=== PATIENT | female | born 1995 | race Two or more races ===

== ENCOUNTER 2024-02-16 13:01 | Emergency (ER) | payer MEDICAID, SELFPAY ==
[2024-02-16 13:20] VITALS: BP 111/76; PULSE 68; RESP 19; TEMP 37.1; O2SAT 98; BMI 23.8
--- NOTE | 2024-02-16 15:12 | XR_ITS ---
Examination: Pelvic ultrasound, transabdominal, complete Technique: Transabdominal ultrasound of the pelvis performed using grayscale imaging Date and time of exam: February 16, 2024 1551 hrs. Indications: Right lower abdominal pain pelvic pain beginning 3 months ago, worse today Findings: Uterus 8.0 x 5.4 x 7.4 cm Endometrial stripe 0.4 cm No uterine mass or intrauterine gestation Right ovary 3.4 x 2.5 x 2.9 cm arterial flow 20 x 17 mm cyst Left ovary 3.9 x 2.9 cm arterial flow 14 mm follicular cyst Impression: No uterine mass or intrauterine gestation Small bilateral ovarian follicular cysts
--- NOTE | 2024-02-16 15:13 | EDNOTE_ITS ---
ED Abdominal Pain RME/HPI General Chief Complaint: Abdominal Pain Stated complaint: LOWER ABD PAIN Arrival date/time: 02/16/24 13:01 RME / HPI RME / HPI narrative: Clinical Summary: This 28-year-old female presents with a history of bilateral flank pain over the past several weeks, which she attributes to a ruptured ovarian cyst that occurred a few weeks ago. The pain is described as nonspecific, located mainly in the left upper quadrant, and is not related to her menstrual cycle. She has had an ultrasound recently that showed no significant findings, and she reports no current pain or significant symptoms in the emergency department. The only finding on physical examination is minimal tenderness in the right lower quadrant, with no signs of peritonitis. Her past surgical history includes breast augmentation. Differential Diagnosis: Based on the patient's history and clinical presentation, here are several possible diagnoses: * Ovarian Cyst Rupture: * A ruptured ovarian cyst could explain her symptoms. While these typically present with acute, severe pelvic pain, a more gradual or lingering pain may persist even after the rupture. This could account for the prolonged nonspecific pain in the left upper quadrant (although ovarian cysts are typically located in the lower abdomen). * The minimal tenderness on physical exam and the normal ultrasound may suggest that the cyst has resolved, or there is no active process currently affecting the ovaries. * Urinary Tract Infection (UTI) or Renal Pathology: * Flank pain can sometimes be due to a UTI or renal pathology like kidney stones or pyelonephritis. However, this patient has no urinary symptoms (e.g., dysuria, hematuria, fever) or signs of infection, making this diagnosis less likely. * Musculoskeletal Pain: * The right lower quadrant tenderness could be due to musculoskeletal pain, possibly from a muscle strain or other musculoskeletal injury. This could also explain the nonspecific, intermittent nature of her pain. * Gastrointestinal Issues: * Gastrointestinal causes, such as irritable bowel syndrome (IBS), constipation, or gastroesophageal reflux disease (GERD), could also manifest as nonspecific abdominal or flank pain. The location of her pain in the left upper quadrant is not typical for gastrointestinal causes, but it still remains in the differential. * Endometriosis: * Endometriosis can cause chronic pelvic or flank pain, especially if it involves the ovaries or peritoneum. However, her pain is not correlated with her menstrual cycle, which is atypical for this diagnosis, and she has no associated symptoms (e.g., dyspareunia, dysmenorrhea). Work-Up and Next Steps: * Repeat Imaging: * Pelvic ultrasound: While the patient had an ultrasound recently, repeating a pelvic ultrasound might be helpful, especially if the pain persists or there is suspicion of other ovarian pathology, such as residual or new cysts or endometriosis. Related Data Allergies Allergy/AdvReac Type Severity Reaction Status Date / Time No Known Allergies Allergy Verified 02/16/24 13:02 Course Quality Measures none Orders Category Date Time Status US pelvic complete Stat Exams 02/16/24 15:12 Completed CBC Stat Lab 02/16/24 16:35 Completed CMP [Comprehensive Metabolic Panel] Stat Lab 02/16/24 16:35 Received HCG Qualitative,Urine Stat Lab 02/16/24 15:44 Completed UA [Urinalysis] Stat Lab 02/16/24 15:44 Completed Vital Signs Vital signs: Vital Signs Temperature 98.8 F 02/16/24 13:20 Pulse Rate 68 02/16/24 13:20 Respiratory Rate 19 02/16/24 13:20 Blood Pressure 111/76 02/16/24 13:20 Pulse Oximetry (%) 98 02/16/24 13:20 Oxygen Delivery Method Room Air 02/16/24 13:20 Abdominal Pain MDM MDM Narrative [facility] Narrative:: Patient has minimal symptoms and no clear reason for an abdominal pain in the healthy, young lady. Her examination and evaluation of her abdomen was completely benign in the emergency department. Her main concern was her ovarian cyst which was rechecked using an ultrasound and was completely unremarkable. Patient data External records reviewed:: None Clinical information provided by:: patient Social determinants that could affect healthcare access:: none Patient has the following chronic illnesses:: none How is presenting disease/condition affected by chronic disease/condition?: no chronic disease Evaluation data The following diagnostics were reviewed and interpreted by me:: lab results and radiology exam(s) Lab and/or radiology exams considered but not ordered:: See MDM Interpretation Summary: See MDM Medications / Prescriptions Medications or Prescriptions considered but not ordered:: Not applicable Medication administrations:: Not applicable Consultations Consultation(s) initiated? (list below): No Diagnosis Differential diagnosis abdominal pain: abdominal pain, constipation and endometriosis Most likely diagnosis given after review of the tests above:: UTI Admission Indicated Admission indicated?: not indicated Admission Request Was there a request for admission?: No Disposition Plan Disposition Plan: Discharge Discharge Attestation Discharge Attestation: The patient and all family members were given an opportunity to ask questions and understood the discharge instructions. Discharge instructions specifically effects, indications for sooner follow up or return to the emergency department, and the expected course of current diagnosis. Patient condition: Stable Discharge Plan Plan Patient Disposition: HOME (Self Care) Patient condition on transfer: Stable Prescriptions/Referrals Referrals: Hung Gary MD [Primary Care Provider] - In 1 week Problem List Clinical Impression: History of ovarian cyst Patient/Caregiver Discharge Instructions Print Language: Citizen Of [place] Stand Alone Forms: Najma Award Info., Patient Portal Info Letter
[2024-02-16 16:18] LABS: Collection Type, Urine Clean Catch
[2024-02-16 16:32] LABS: HCG Qualitative,Urine Negative
[2024-02-16 16:37] LABS: Bacteria,Urine 4+; Bilirubin,Urine Negative (Negative); Blood,Urine 1+ (Negative); Clarity,Urine Turbid (Clear/Hazy); Color,Urine Yellow (Lt Yel-Yel); Glucose, Urine Negative (Negative); Ketones,Urine Negative (Negative); Leukocyte Esterase,Urine Negative (Negative); Nitrite,Urine Positive (Negative); Protein,Urine Trace (Neg - Trace); RBC,Urine 9 /hpf (0-3); Specific Gravity,Urine 1.024 (1.001-1.035); Squamous Epithelial Cell,Urine 6 /hpf (0-5); Urobilinogen,Urine Negative mg/dL (0.0-1.0); WBC,Urine 1 /hpf (0-5)
[2024-02-16 16:43] LABS: Basophils % (Auto) 1 % (0-2.5); Eosinophils # (Auto) 0.1 Thou/mm3 (0.0-0.5); Eosinophils % (Auto) 1 % (0-10); Hematocrit 38.2 % (36.0-46.0); Hemoglobin 12.7 g/dL (12.0-16.0); Immature Granulocytes % (Auto) 0 % (0-0); Immature Granulocytes Auto 0.02 Thou/mm3 (0.00-0.00); Lymphocytes # (Auto) 1.4 Thou/mm3 (1.0-4.8); Lymphocytes % (Auto) 27 % (10-50); Mean Corpuscular HGB Conc 33.2 g/dl (31.0-37.0); Mean Corpuscular Hemoglobin 27.9 pg (25.0-35.0); Mean Corpuscular Volume 84 fL (80-100); Monocytes # (Auto) 0.4 Thou/mm3 (0.0-0.8); Monocytes % (Auto) 8 % (0-12); Neutrophils # (Auto) 3.3 Thou/mm3 (1.8-7.7); Neutrophils % (Auto) 63 % (37-80); Nucleated Red Blood Cell % 0 /100 WBC (0); Platelet Count 305 Thou/mm3 (140-440); Red Blood Count 4.56 Miln/mm3 (4.00-5.20); White Blood Count 5.2 Thou/mm3 (3.6-11.0)
[2024-02-16 17:06] LABS: Alanine Aminotransferase 12 U/L (10-49); Albumin, Serum 4.5 gm/dL (3.5-5.0); Anion Gap 6 (7-16); Aspartate Amino Transferase 12 U/L (0-34); BUN/Creatinine Ratio 13 Ratio (12-20); Bilirubin,Total 0.6 mg/dL (0.3-1.2); Blood Urea Nitrogen 9 mg/dL (9-23); Calcium 9.2 mg/dL (8.3-10.6); Calcium (Corrected) 9.2 mg/dL (8.5-10.1); Carbon Dioxide 25.9 mMol/L (20.0-31.0); Chloride 106 mMol/L (98-107); Creatinine (Component) 0.7 mg/dL (0.6-1.3); Estimated Creatinine Clearance 90.3 mL/min (>60); Glucose 89 mg/dL (74-106); Osmolality,Calculated 273 (275-295); Potassium 3.8 mMol/L (3.4-5.1); Sodium 138 mMol/L (136-145); Total Protein 7.2 gm/dL (5.7-8.2); eGFR > 60 See Note
[2024-02-16 17:07] LABS: Albumin/Globulin Ratio 1.7 (1.2-2.2); Alkaline Phosphatase 63 U/L (46-116); Globulin 2.7 gm/dL (2.3-3.5)
[2024-02-16 17:10] VITALS: BP 125/84; PULSE 66; RESP 16; TEMP 37.1; O2SAT 98
== END 2024-02-16 17:15 | disposition home or self-care (01) ==
PROVIDERS: Emergency Provider Emergency Medicine; PCP Family Medicine
DX: N83.02 Follicular cyst of left ovary (principal); N83.01 Follicular cyst of right ovary
CPT/HCPCS: 36415; 76856; 80053; 81001; 81025; 85025; 99284

== ENCOUNTER 2024-06-02 10:22 | Outpatient (AMB) | payer MEDICAID, SELFPAY ==
--- NOTE | 2024-06-02 10:23 | AMB.OBINITIA ---
Vital Signs 06/02/24 10:40 Height 1.55 m Height Method Stated Weight 61.915 kg Weight Measurement Method Standing Scale BMI 25.7 BP 109/71 Blood Pressure Source Automatic Cuff Blood Pressure Location Left Upper Arm Position Sitting Respiration 16 Pulse 88 Pulse Source Monitor Temp 98 F Temp Source Oral Pulse Oximetry (%) 98 Oxygen Delivery Method Room Air Allergies/Home Meds Allergies & Medications Allergies No Known Allergies Allergy (Verified 06/02/24 10:42) Medication Reconciliation No Known Home Medications 06/02/24 [History Confirmed 06/02/24] Intake Visit Data Collection New Patient or Established: Established Patient (seen at [facility] within 3 years) Reason for Visit:: Initial OB Seen by Clinical Staff ONLY (RN/MA): No Hide Cooking Operator Required: No Do You Feel Safe at Home: Yes Authorities Contacted: N/A PCP or OBGYN visit in last 3 months: Yes Hx Now: Yes Are you currently on any form of Control: No Last menstrual period: 03/25/24 Pain Present Currently: No Pain Scale Used: Carpio-Montgomery/Numerical Pain scale:: 0 Smoking Status Smoking Status: Never smoker Questionnaires Covid-19 Vaccine Questionnaire Has patient been vacinated for Covid-19 Have you been vacinated for Covid-19: No PHQ-9 PHQ-2 Over the last 2 weeks, how often have you been bothered by any of the following problems? 1. Little interest or pleasure in doing things: not at all 2. Feeling down, depressed, or hopeless: not at all Total score: 0 PHQ-9 3. Trouble falling or staying asleep, or sleeping too much: Not at all 4. Feeling tired or having little energy: Not at all 5. Poor appetite or overeating: Not at all 6. Feeling bad about yourself - or that you are a failure or have let yourself or your family down: Not at all 7. Trouble concentrating on things, such as reading the newspaper or watching television: Not at all 8. Moving or speaking so slowly that other people could have noticed? - Or the opposite - being so fidgety or restless that you have been moving around a lot more than usual: not at all 9. Thoughts that you would be better off or of hurting yourself in some way: Not at all Total score: 0 Source: Developed by Drs. Magen Davalos, Magalis Vu, Kevin Gonzalez and colleagues, with an educational farhat from [employer]. Depression screen completed yes Social History Living Situation History Marital Status: Single Lives With: Family Housing: House Tobacco History Smoking Status: Never smoker Second Hand Smoke Exposure: No Alcohol History Alcohol Intake: Former Alcohol Intake Frequency: holidays/special occasions only Substance Use History Substance Use: none Domestic Abuse History Do You Feel Safe at Home: Yes Past Medical History Past Medical History Have you ever been diagnosed with any of the following: Neurological Problems Cerebrovascular Accident (CVA): No Transient Ischemic Attacks (TIA): No Dementia: No Alzheimer's Disease: No Parkinson's Disease: No Brain Tumor: No Meningitis: No Seizures: No Epilepsy: No Multiple Sclerosis: No Cerebral Palsy: No Amyotrophic Lateral Sclerosis (ALS/Janie Gehrig's): No Guillain-Lena Syndrome: No Spina Bifida: No Paralysis: No Peripheral Neuropathy: No Gray's Palsy: No Subdural Hematoma: No Migraine: No Head Trauma: No Spinal Cord Injury: No Traumatic Brain Injury: No Cardiology Problems Myocardial Infarction: No Cardiac Arrhythmia: No Atrial Fibrillation: No Angina: No Heart Murmur: No Coronary Artery Disease: No Atherosclerotic Heart Disease: No Peripheral Vascular Disease: No Hypercholesterolemia: No Aneurysm: No Congestive Heart Failure: No Congenital Heart Disease: No Valvular Heart Disease: No Rheumatic Fever: No Cardiomyopathy: No Edema: No Pericarditis: No Deep Vein Thrombosis: No Hypertension: No Hypotension: No Respiratory Problems Chronic Obstructive Pulmonary Disease (COPD): No Asthma: No Bronchitis: No Emphysema: No Pneumonia: No Stomache/Intestinal Problems Liver Cancer: No Hepatitis: No Cirrhosis: No Pancreatic Cancer: No Pancreatitis: No Celiac Disease: No Genital/Urinary Problems Chronic Kidney Disease: No Renal Disease: No Kidney Stones: No Polycystic Kidney Disease: No Neurogenic Bladder: No Reproductive Problems Breast Cancer: No Endometriosis: No Fibroids: No Genital Herpes: No Gonorrhea: No Pelvic Inflammatory Disease: No Polycystic Ovarian Syndrome: No Previous Pregnancies: Yes Syphilis: No Musculoskeletal Problems Muscular Dystrophy: No Myasthenia Gravis: No Marfan's Syndrome: No Bone Cancer: No Arthritis: No Rheumatoid Arthritis: No Head,Eye,Nose,Throat Problems Cataracts: No Glaucoma: No Blind: No Retinal Detachment: No Macular Degeneration: No Chronic Ear Infections: No Deafness: No Eye Prosthesis: No Endocrine Problems Diabetes Mellitus Type 1: No Diabetes Mellitus Type 2: No Hypoglycemia: No Isidro's Syndrome: No [place]'s Disease: No Hyperthyroidism: No Hypothyroidism: No Thyroid Cancer: No Parathyroid Disease: No Pituitary Disease: No Systemic Lupus Erythematosus: No Syndrome of Inappropriate Antidiuretic Hormone: No Adrenal Disease: No Graves' Disease: No Blood Problems Anemia: Yes Leukemia: No Hemophilia: No Thalassemia: No Sickle Cell Disease: No Clotting Problems: No Psychologic Problems Schizophrenia: No Recreational Drug Use: No Bipolar Disorder: No Depression: No Anxiety: No Behavior Problems: No Self-Mutilation: No Other Problems Hospitalization: No Autoimmune Disease: No Down Syndrome: No Autism: No Developmental Delay: No Cosmetic Surgery: Yes (breast implants) Human Immunodeficiency Virus (HIV): No Chicken Pox: No Measles: No Mumps: No Rubella (Lithuanian Measles): No Pertussis: No Clostridium Difficile: No Surgical History Angioplasty: No Appendectomy: No Bariatric Surgery: No Breast Surgery: Yes (breast implants) History of Present Illness HPI Narrative History of Present Illness 29-year-old female presents to establish care. Patient reports a last menstrual period of 04/13/24, placing her at 9 weeks 6 days gestation. She has previously seen a provider at [facility] for initial confirmation. Serum hCG was 65,000 on 05/12/2024. Patient reports experiencing significant nausea and mild cramping on the sides. She denies any bleeding. Patient has a history of 5 full-term vaginal deliveries without complications. She denies any other health issues or regular medications when not . No cramping/ bleeding No nausea/ vomiting OB Initial Visit Menstrual History Menstrual reliability: definite Flow: heavy Menstrual regularity: regular Monthly: Yes Age at menarche: 14 On control pills at conception: Yes Date of positive home test: 05/08/24 Associated symptoms (LMP): Reports nausea Other symptoms: headaches, dizziness OB History : 6 Para: 5 Hx # Pregnancies: 0 Hx Total # of Abortions (Spontaneous & Elective): 0 # of Living Children: 5 Delivery History 1st : Child's name: Ivon date: 03/25/12 sex: female Gestational age at delivery (weeks): 38 Delivery type: vaginal History of depression before or after : No 2nd : Child's name: Summer date: 03/07/14 sex: female Gestational age at delivery (weeks): 38 Delivery type: vaginal History of depression before or after : No 3rd : Child's name: Carolyn date: 04/07/15 sex: female Gestational age at delivery (weeks): 39 Delivery type: vaginal History of depression before or after : No 4th : Child's name: Libra date: 08/19/16 sex: female Gestational age at delivery (weeks): 41 Delivery type: vaginal History of depression before or after : No 5th : Child's name: Miki date: 08/31/20 sex: male Gestational age at delivery (weeks): 38 Delivery type: vaginal History of depression before or after : No Infection History & Risk Evaluation History of STDs: none Genetic Screening & History Genetic Screening/Teratology Counseling - Includes patient, baby's father, or anyone in either family with: 1. Patient's age 35 years or older as of estimated date of delivery: No 2. Thalassemia (Armenian, British, Mediterranean, or Background); MCV less than 80: No 3. Neural Tube Defect (Meningomyelocele, Spina Bifida, or Anencephaly): No 4. Congenital Heart Defect: No 5. Down Syndrome: No 6. Chris-Sachs (Ashkenazi Anabaptist, Cajun, [place]ian [place]): No 7. Greta Disease (Ashkenazi Anabaptist): No 8. Familial Dysautonomia (Ashkenazi Anabaptist): No 9. Sickle Cell Disease or Trait (): No 10. Hemophilia or other blood disorders: No 11. Muscular Dystrophy: No 12. Cystic Fibrosis: No 13. Sean's Chorea: No 14. Mental Retardation/Autism: No 15. Other inherited genetic or chromosomal disorder: No 16. Maternal Metabolic Disorder (EG,TYPE 1 Diabetes, PKU): No 17. Patient or baby's father had a child with defects not listed above: No 18. Recurrent loss or a stillbirth: No 19. Medications (including supplements, vitamins, herbs or otc drugs)/illicit/recreational drugs/alcohol since last menstrual period: No 20. Any other: No Infection History 1. Live with someone with TB or exposed to TB: No 2. Rash or viral illness since last menstrual period: No 3. Hepatitis B,C: No Other (see comments) Source: [employer] Review of Systems Review of Systems Systems Reviewed: All systems reviewed, normal except as documented Gastrointestinal Gastrointestinal: Reports nausea Exam General Limitations: no limitations General Appearance: alert, in no apparent distress, comfortable, cooperative, healthy appearing, well developed and well groomed Head Head exam: atraumatic, normocephalic and normal inspection Neck Neck exam: Present normal inspection, full ROM and trachea midline Chest Chest inspection: Present normal inspection and symmetric chest wall rise Abdominal Abdominal exam: Present soft and normal bowel sounds Extremities Extremities exam: Present normal inspection and full ROM Back Back exam: Present normal inspection and full ROM Neuro Neurological exam: Present alert, oriented X3 and CN II-XII intact Psych Psychiatric exam: Present normal affect and normal mood Skin Skin exam: Present warm, dry, intact and normal color Assessment & Plan Diagnosis / Problem List (1) Supervision of high risk , unspecified, first trimester: Status: Acute Plan: Intrauterine 29-year-old at 9 weeks 2 days gestation by ultrasound measurement, consistent with reported LMP of 04/13/24. Ultrasound shows single viable intrauterine with heart rate of 174 bpm, which is normal for early . Placenta and amniotic sac visualized. Previous serum hCG on 05/12/24 was 65,000, which is appropriate for gestational age. Patient reports nausea and mild cramping, but denies bleeding. History of 5 full-term vaginal deliveries without complications. - labs to be ordered - vitamins prescribed - Follow-up appointment scheduled in 4 weeks - Patient provided with ultrasound images Pt Education Educated the patient on the importance of care, including taking vitamins with folic acid, iron, and calcium. Emphasized avoiding alcohol, smoking, and certain medications. Discussed common symptoms like nausea and fatigue, advising small, frequent meals and adequate hydration. Explained the need for regular check-ups and recommended safe physical activities. Instructed on signs of complications, such as severe cramping or bleeding, and when to seek immediate medical attention. Highlighted the importance of a balanced diet and avoiding high-risk foods. Encouraged open communication about any concerns or questions. Encouraged keeping up with all appointments and tests. Additional Assessment Vanna Pinzon is a 29-year-old female presenting to establish care at approximately 9 weeks gestation based on last menstrual period. Ultrasound examination confirms intrauterine measuring 9 weeks and 2 days with heart rate of 174 bpm, which is within normal range for early . The patient's reported last menstrual period of March 25 is noted to be approximate, but closely aligns with ultrasound dating. Previous serum hCG of 65,000 on 05/12/2024 is consistent with expected levels for this gestational age. Patient reports nausea and mild cramping, which are common in early . No vaginal bleeding or other concerning symptoms noted. Given the patient's history of 5 uncomplicated full-term vaginal deliveries and absence of other medical issues, this appears to be a low-risk at this time. Office Procedures OB Clinic LOC & Office Proc's Nursing/Assessment Patient Status: Established Patient OB Clinic Nursing Assessment: Medication Reconciliation, Update PMH in EMR and Vital Signs OB Clinic Coordination of Care: Complex Care and Chronic Disease 1-5, Consent,records obtained, informed consent, Education Simp Pt/Fam, Lab and Imaging orders, Results/Orders obtained and Staff clarify orders Special Needs: Heart tones Established Patient Charge Established Patient Point Assignment: 135 Established Patient Point Charge: EP Level 4 (120-155) Bedside Ultrasounds US Transabdominal >14 weeks at bedside: Yes
[2024-06-02 10:40] VITALS: BP 109/71; PULSE 88; RESP 16; TEMP 36.6; O2SAT 98; BMI 25.7
== END 2024-06-02 11:30 | disposition home or self-care (01) ==
LOC: HODSOBC 10:22
PROVIDERS: PCP Family Medicine; Referring Provider Family Medicine; Supervising Provider Obstetrics & Gynecology; Visit Provider Obstetrics & Gynecology
DX: O09.41 Supervision of pregnancy with grand multiparity, first trimester (principal); O09.891 Supervision of other high risk pregnancies, first trimester; Z3A.09 9 weeks gestation of pregnancy
CPT/HCPCS: 76805; 99214; G0463

== ENCOUNTER 2024-06-18 14:37 | Outpatient (AMB) | payer MEDICAID, SELFPAY ==
[2024-06-18 14:49] VITALS: BP 101/67; PULSE 78; RESP 14; TEMP 36.6; O2SAT 96; BMI 26.0
--- NOTE | 2024-06-18 14:49 | AMB.OBVISIT ---
Vital Signs 06/18/24 14:49 Height 1.55 m Height Method Stated Weight 62.652 kg Weight Measurement Method Standing Scale BMI 26.0 BP 101/67 Blood Pressure Source Automatic Cuff Blood Pressure Location Left Upper Arm Position Sitting Respiration 14 Pulse 78 Pulse Source Monitor Temp 97.8 F Temp Source Oral Pulse Oximetry (%) 96 Oxygen Delivery Method Room Air Allergies/Home Meds Allergies & Medications Allergies No Known Allergies Allergy (Verified 06/18/24 14:50) Medication Reconciliation No Known Home Medications 06/02/24 [History Confirmed 06/18/24] Intake Visit Data Collection New Patient or Established: Established Patient (seen at [facility] within 3 years) Reason for Visit:: CARE Seen by Clinical Staff ONLY (RN/MA): No Coding Advisor Required: No Do You Feel Safe at Home: Yes Authorities Contacted: N/A PCP or OBGYN visit in last 3 months: Yes Date of Last PCP or OBGYN visit: 06/02/24 Hx Now: Yes Are you currently on any form of Control: No Last menstrual period: 03/30/24 Pain Present Currently: No Pain Scale Used: Carpio-Montgomery/Numerical Pain scale:: 0 Smoking Status Smoking Status: Never smoker Questionnaires Covid-19 Vaccine Questionnaire Has patient been vacinated for Covid-19 Have you been vacinated for Covid-19: Yes PHQ-9 PHQ-2 Over the last 2 weeks, how often have you been bothered by any of the following problems? 1. Little interest or pleasure in doing things: not at all 2. Feeling down, depressed, or hopeless: not at all Total score: 0 PHQ-9 3. Trouble falling or staying asleep, or sleeping too much: Not at all 4. Feeling tired or having little energy: Not at all 5. Poor appetite or overeating: Not at all 6. Feeling bad about yourself - or that you are a failure or have let yourself or your family down: Not at all 7. Trouble concentrating on things, such as reading the newspaper or watching television: Not at all 8. Moving or speaking so slowly that other people could have noticed? - Or the opposite - being so fidgety or restless that you have been moving around a lot more than usual: not at all 9. Thoughts that you would be better off or of hurting yourself in some way: Not at all Total score: 0 Source: Developed by Drs. Magen Davalos, Magalis Vu, Kevin Gonzalez and colleagues, with an educational farhat from [employer]. Depression screen completed yes Social History Living Situation History Marital Status: Lives With: Family Housing: House Tobacco History Smoking Status: Never smoker Second Hand Smoke Exposure: No Alcohol History Alcohol Intake: Former Alcohol Intake Frequency: holidays/special occasions only Substance Use History Substance Use: none Domestic Abuse History Do You Feel Safe at Home: Yes Past Medical History Past Medical History Have you ever been diagnosed with any of the following: Neurological Problems Cerebrovascular Accident (CVA): No Transient Ischemic Attacks (TIA): No Dementia: No Alzheimer's Disease: No Parkinson's Disease: No Brain Tumor: No Meningitis: No Seizures: No Epilepsy: No Multiple Sclerosis: No Cerebral Palsy: No Amyotrophic Lateral Sclerosis (ALS/Janie Gehrig's): No Guillain-Diana Syndrome: No Spina Bifida: No Paralysis: No Peripheral Neuropathy: No Gray's Palsy: No Subdural Hematoma: No Migraine: No Head Trauma: No Spinal Cord Injury: No Traumatic Brain Injury: No Cardiology Problems Myocardial Infarction: No Cardiac Arrhythmia: No Atrial Fibrillation: No Angina: No Heart Murmur: No Coronary Artery Disease: No Atherosclerotic Heart Disease: No Peripheral Vascular Disease: No Hypercholesterolemia: No Aneurysm: No Congestive Heart Failure: No Congenital Heart Disease: No Valvular Heart Disease: No Rheumatic Fever: No Cardiomyopathy: No Edema: No Pericarditis: No Deep Vein Thrombosis: No Hypertension: No Hypotension: No Respiratory Problems Chronic Obstructive Pulmonary Disease (COPD): No Asthma: No Bronchitis: No Emphysema: No Pneumonia: No Tuberculosis: No Hx Cough: No Cough: No Smoking: No Smoking Cessation Counseling: No Smoking Exposure: No Tobacco Use: No Stomache/Intestinal Problems Liver Cancer: No Hepatitis: No Cirrhosis: No Pancreatic Cancer: No Pancreatitis: No Celiac Disease: No Genital/Urinary Problems Chronic Kidney Disease: No Renal Disease: No Kidney Stones: No Polycystic Kidney Disease: No Neurogenic Bladder: No Reproductive Problems Breast Cancer: No Endometriosis: No Fibroids: No Genital Herpes: No Gonorrhea: No Pelvic Inflammatory Disease: No Polycystic Ovarian Syndrome: No Previous Pregnancies: Yes Syphilis: No Musculoskeletal Problems Muscular Dystrophy: No Myasthenia Gravis: No Marfan's Syndrome: No Bone Cancer: No Arthritis: No Rheumatoid Arthritis: No Head,Eye,Nose,Throat Problems Cataracts: No Glaucoma: No Blind: No Retinal Detachment: No Macular Degeneration: No Chronic Ear Infections: No Deafness: No Eye Prosthesis: No Endocrine Problems Diabetes Mellitus Type 1: No Diabetes Mellitus Type 2: No Hypoglycemia: No Isidro's Syndrome: No Aaron's Disease: No Hyperthyroidism: No Hypothyroidism: No Thyroid Cancer: No Parathyroid Disease: No Pituitary Disease: No Systemic Lupus Erythematosus: No Syndrome of Inappropriate Antidiuretic Hormone: No Adrenal Disease: No Graves' Disease: No Blood Problems Anemia: Yes Leukemia: No Hemophilia: No Thalassemia: No Sickle Cell Disease: No Clotting Problems: No Psychologic Problems Schizophrenia: No Recreational Drug Use: No Bipolar Disorder: No Depression: No Anxiety: No Behavior Problems: No Self-Mutilation: No Other Problems Hospitalization: No Down Syndrome: No Autism: No Developmental Delay: No Cosmetic Surgery: Yes (breast implants) Human Immunodeficiency Virus (HIV): No Chicken Pox: No Measles: No Mumps: No Rubella (Romanian Measles): No Pertussis: No Clostridium Difficile: No Surgical History Angioplasty: No Appendectomy: No Bariatric Surgery: No Breast Surgery: Yes (breast implants) Cancer Surgery: No Carotid Endarterectomy: No Cholecystectomy: No Colectomy: No Colostomy: No Coronary Artery Bypass Graft: No History of Present Illness HPI Narrative The patient is and reports experiencing headache and cramping. She also mentions feeling nauseous but is not vomiting. The patient denies any bleeding. There are concerns about hydration, as the provider notes it's getting hot and emphasizes the importance of staying hydrated during . No cramping/ bleeding No nausea/ vomiting Review of Systems Review of Systems Systems Reviewed: All systems reviewed, normal except as documented Visit BRITTANI Calculator Estimated Delivery Date Method Current WG Current Estimate 01/03/25 Ultrasound #1 12w 2d Other Estimates 12/30/24 LMP (Certain) 12w 6d Exam General Limitations: no limitations General Appearance: alert, in no apparent distress, comfortable, cooperative, healthy appearing, well developed and well groomed Head Head exam: atraumatic, normocephalic and normal inspection Neck Neck exam: Present normal inspection, full ROM and trachea midline Chest Chest inspection: Present normal inspection and symmetric chest wall rise Resp Respiratory exam: Present normal lung sounds bilaterally Card Cardiovascular exam: Present regular rate, normal rhythm and normal heart sounds Abdominal Abdominal exam: Present soft and normal bowel sounds Extremities Extremities exam: Present normal inspection and full ROM Back Back exam: Present normal inspection and full ROM Neuro Neurological exam: Present alert, oriented X3 and CN II-XII intact Psych Psychiatric exam: Present normal affect and normal mood Skin Skin exam: Present warm, dry, intact and normal color Assessment & Plan Diagnosis / Problem List (1) Grand multiparity: Status: Acute (2) Supervision of high risk , unspecified, first trimester: Status: Acute Plan: Patient is in early and has not completed initial labs, including infection screening, blood typing, and genetic testing for Down syndrome and sex determination. These tests are time-sensitive and should be completed promptly for valid results. The patient reports experiencing headache, cramping, and nausea without vomiting. heart tones were noted to be normal during the visit. - Complete lab panel at [facility] as soon as possible (week only) - Schedule detailed ultrasound with specialist in [place] at approximately 18 weeks gestation - Maintain adequate hydration, especially given increasing temperatures - Prescription for vitamins to be filled at [facility] pharmacy - Follow-up appointment scheduled in 2 weeks (3) Normal labor and delivery: Status: Acute Office Procedures OB Clinic LOC & Office Proc's Nursing/Assessment Patient Status: Established Patient OB Clinic Nursing Assessment: Medication Reconciliation, Update PMH in EMR and Vital Signs OB Clinic Coordination of Care: Complex Care and Chronic Disease 1-5, Consent,records obtained, informed consent, Education Simp Pt/Fam, Lab and Imaging orders and Staff clarify orders Special Needs: Heart tones Established Patient Charge Established Patient Point Assignment: 130 Established Patient Point Charge: EP Level 4 (120-155)
== END 2024-06-18 15:08 | disposition home or self-care (01) ==
LOC: HODSOBC 14:37
PROVIDERS: PCP Obstetrics & Gynecology; Referring Provider Obstetrics & Gynecology; Supervising Provider Obstetrics & Gynecology; Visit Provider Obstetrics & Gynecology
DX: O09.40 Supervision of pregnancy with grand multiparity, unspecified trimester (principal)
CPT/HCPCS: 99214; G0463

== ENCOUNTER 2024-07-06 10:36 | Outpatient (AMB) | payer MEDICAID, SELFPAY ==
[2024-07-06 11:02] VITALS: BP 108/70; PULSE 92; RESP 16; TEMP 36.6; O2SAT 97; BMI 26.3
--- NOTE | 2024-07-06 11:02 | OBCLNT_ITS ---
Vital Signs 07/06/24 11:02 Height 1.55 m Height Method Stated Weight 63.219 kg Weight Measurement Method Standing Scale BMI 26.3 BP 108/70 Blood Pressure Source Automatic Cuff Blood Pressure Location Left Upper Arm Position Sitting Respiration 16 Pulse 92 Pulse Source Monitor Temp 98 F Temp Source Oral Pulse Oximetry (%) 97 Oxygen Delivery Method Room Air Allergies/Home Meds Allergies & Medications Allergies No Known Allergies Allergy (Verified 07/06/24 11:03) Medication Reconciliation vitamin with calcium no.72-iron 27 mg-folic acid 1 mg tablet ( Vitamins Plus Low Iron) 1 tab PO QDAY 90 days #90 tabs 07/06/24 [Rx] Intake Visit Data Collection New Patient or Established: Established Patient (seen at [facility] within 3 years) Reason for Visit:: CARE Seen by Clinical Staff ONLY (RN/MA): No Cleaning Attendant Required: No Do You Feel Safe at Home: Yes Authorities Contacted: N/A PCP or OBGYN visit in last 3 months: Yes Hx Now: Yes Are you currently on any form of Control: No Pain Present Currently: No Pain Scale Used: Carpio-Montgomery/Numerical Pain scale:: 0 Smoking Status Smoking Status: Never smoker Questionnaires Covid-19 Vaccine Questionnaire Has patient been vacinated for Covid-19 Have you been vacinated for Covid-19: Yes PHQ-9 PHQ-2 Over the last 2 weeks, how often have you been bothered by any of the following problems? 1. Little interest or pleasure in doing things: not at all 2. Feeling down, depressed, or hopeless: not at all Total score: 0 PHQ-9 3. Trouble falling or staying asleep, or sleeping too much: Not at all 4. Feeling tired or having little energy: Not at all 5. Poor appetite or overeating: Not at all 6. Feeling bad about yourself - or that you are a failure or have let yourself or your family down: Not at all 7. Trouble concentrating on things, such as reading the newspaper or watching television: Not at all 8. Moving or speaking so slowly that other people could have noticed? - Or the opposite - being so fidgety or restless that you have been moving around a lot more than usual: not at all 9. Thoughts that you would be better off or of hurting yourself in some way: Not at all Total score: 0 Source: Developed by Drs. Magen Davalos, Magalis Vu, Kevin Gonzalez and colleagues, with an educational farhat from [email or web address]. Depression screen completed yes Social History Living Situation History Lives With: Family Housing: House Tobacco History Smoking Status: Never smoker Second Hand Smoke Exposure: No Alcohol History Alcohol Intake: Former Alcohol Intake Frequency: holidays/special occasions only Substance Use History Substance Use: none Domestic Abuse History Do You Feel Safe at Home: Yes Past Medical History Past Medical History Have you ever been diagnosed with any of the following: Neurological Problems Cerebrovascular Accident (CVA): No Transient Ischemic Attacks (TIA): No Dementia: No Alzheimer's Disease: No Parkinson's Disease: No Brain Tumor: No Meningitis: No Seizures: No Epilepsy: No Multiple Sclerosis: No Cerebral Palsy: No Amyotrophic Lateral Sclerosis (ALS/Janie Gehrig's): No Guillain-Washington Syndrome: No Spina Bifida: No Paralysis: No Peripheral Neuropathy: No Gray's Palsy: No Subdural Hematoma: No Migraine: No Head Trauma: No Spinal Cord Injury: No Traumatic Brain Injury: No Cardiology Problems Myocardial Infarction: No Cardiac Arrhythmia: No Atrial Fibrillation: No Angina: No Heart Murmur: No Coronary Artery Disease: No Atherosclerotic Heart Disease: No Peripheral Vascular Disease: No Hypercholesterolemia: No Aneurysm: No Congestive Heart Failure: No Congenital Heart Disease: No Valvular Heart Disease: No Rheumatic Fever: No Cardiomyopathy: No Edema: No Pericarditis: No Deep Vein Thrombosis: No Hypertension: No Hypotension: No Respiratory Problems Chronic Obstructive Pulmonary Disease (COPD): No Asthma: No Bronchitis: No Emphysema: No Pneumonia: No Tuberculosis: No Hx Cough: No Cough: No Smoking: No Smoking Cessation Counseling: No Smoking Exposure: No Tobacco Use: No Stomache/Intestinal Problems Liver Cancer: No Hepatitis: No Cirrhosis: No Pancreatic Cancer: No Pancreatitis: No Celiac Disease: No Genital/Urinary Problems Renal Disease: No Kidney Stones: No Polycystic Kidney Disease: No Neurogenic Bladder: No Reproductive Problems Breast Cancer: No Endometriosis: No Fibroids: No Genital Herpes: No Gonorrhea: No Pelvic Inflammatory Disease: No Polycystic Ovarian Syndrome: No Previous Pregnancies: Yes Syphilis: No Musculoskeletal Problems Muscular Dystrophy: No Myasthenia Gravis: No Marfan's Syndrome: No Bone Cancer: No Arthritis: No Rheumatoid Arthritis: No Head,Eye,Nose,Throat Problems Cataracts: No Glaucoma: No Blind: No Retinal Detachment: No Macular Degeneration: No Chronic Ear Infections: No Deafness: No Eye Prosthesis: No Endocrine Problems Diabetes Mellitus Type 1: No Diabetes Mellitus Type 2: No Hypoglycemia: No Isidro's Syndrome: No Sheridan's Disease: No Hyperthyroidism: No Hypothyroidism: No Thyroid Cancer: No Parathyroid Disease: No Pituitary Disease: No Systemic Lupus Erythematosus: No Syndrome of Inappropriate Antidiuretic Hormone: No Adrenal Disease: No Graves' Disease: No Blood Problems Anemia: Yes Leukemia: No Hemophilia: No Thalassemia: No Sickle Cell Disease: No Clotting Problems: No Psychologic Problems Schizophrenia: No Recreational Drug Use: No Bipolar Disorder: No Depression: No Anxiety: No Behavior Problems: No Self-Mutilation: No Other Problems Hospitalization: No Down Syndrome: No Autism: No Developmental Delay: No Cosmetic Surgery: Yes (breast implants) Human Immunodeficiency Virus (HIV): No Chicken Pox: No Measles: No Mumps: No Rubella (Yi Measles): No Pertussis: No Clostridium Difficile: No Surgical History Angioplasty: No Appendectomy: No Bariatric Surgery: No Breast Surgery: Yes (breast implants) Cancer Surgery: No Carotid Endarterectomy: No Cholecystectomy: No Colectomy: No Colostomy: No Coronary Artery Bypass Graft: No History of Present Illness HPI Narrative 29yo @14w1d presents for review of lab results. She reports no specific complaints or concerns during this visit. The patient is interested in knowing the gender of her baby, which was revealed to be female based on the NIPT results. Vanna appears to be in good overall health with no reported changes in her condition or new symptoms since her last visit. Patient is non-immune to Rubella. Review of Systems Review of Systems Systems Reviewed: All systems reviewed, normal except as documented Visit OB Visit Log OB Flowsheet Initial Weight: Not Recorded Date -?-?-?-?-?-?-?-?-?-?-?-?- EGA Weight Edema CTX Effacement BP Fundal ht Pres Dilation Effacement Station Visit Note Alb Glu FHR Mov 07/06/24 -?-?-?-?-?-?-?-?-?-?-?-?- 14w 1d 63.219 kg 108/70 29yo @14w1d presents for review of lab results. She reports no specific complaints or concerns during this visit. - Date: 06/19/2024 - Rubella: Non-immune - Hepatitis B: Negative - Hepatitis C: Negative - Blood group: O positive - Antibody screen: Negative - HIV: Negative - Gonorrhea: Negative - Chlamydia: Negative - Hemoglobin: 11.7 g/dL - Platelets: 317 - Urinalysis: Trace ketones, many bact eria - Urine culture: <10,000 CFU/mL - NIPT: Negative, consistent with female gender 175 BRITTANI Calculator Estimated Delivery Date Method Current WG Current Estimate 01/03/25 Ultrasound #1 14w 5d Other Estimates 12/30/24 LMP (Certain) 15w 2d Exam General Limitations: no limitations General Appearance: alert, in no apparent distress, comfortable, cooperative, healthy appearing, well developed and well groomed Head Head exam: atraumatic, normocephalic and normal inspection Chest Chest inspection: Present normal inspection and symmetric chest wall rise Abdominal Abdominal exam: Present soft and normal bowel sounds Psych Psychiatric exam: Present normal affect and normal mood Skin Skin exam: Present warm, dry, intact and normal color Assessment & Plan Diagnosis / Problem List (1) Grand multiparity: Status: Acute (2) Supervision of high risk , unspecified, first trimester: Status: Acute (3) Normal labor and delivery: Status: Acute Plan Problem-Based Assessment and Plan Vanna Pinzon is a 29-year-old female at 14 weeks and 1 day gestation presenting for review of lab results. Routine care Assessment: Patient is at 14 weeks and 1 day gestation. Recent lab results from 06/19/2024 show: rubella non-immune, hepatitis B negative, hepatitis C negative, blood group O positive, antibody screen negative, HIV negative, gonorrhea and chlamydia negative. Hemoglobin was 11.7 g/dL, platelets 317,000/?L. Urine culture showed trace ketones, many bacteria, and colony forming units less than 10,000 per mL. Non-invasive testing (NIPT) was negative for common genetic problems including Down syndrome, and is consistent with female gender. heart rate auscultated at 157 bpm, which is within normal range. Plan: - Ultrasound scheduled for 20 weeks gestation - Follow-up appointment in one month - [facility] in [place] (medication details not specified) Pt Education Educated the patient on labor signs, including regular contractions, lower back pain, and changes in vaginal discharge. Advised avoiding heavy lifting and getting adequate rest. Instructed to contact the office immediately if any signs occur. Discussed the importance of a balanced diet rich in folic acid, iron, and calcium, and provided a list of recommended and to-avoid foods. Emphasized avoiding high-sugar foods to reduce gestational diabetes risk. Encouraged hydration and frequent, small meals for energy. Office Procedures OB Clinic LOC & Office Proc's Nursing/Assessment Patient Status: Established Patient OB Clinic Nursing Assessment: Medication Reconciliation, Update PMH in EMR and Vital Signs OB Clinic Coordination of Care: Complex Care and Chronic Disease 1-5, Consent,records obtained, informed consent, Education Simp Pt/Fam and Staff clarify orders Special Needs: Heart tones Established Patient Charge Established Patient Point Assignment: 115 Established Patient Point Charge: EP Level 3 (80-115)
== END 2024-07-06 11:09 | disposition home or self-care (01) ==
LOC: HODSOBC 10:36
PROVIDERS: Supervising Provider Obstetrics & Gynecology; Visit Provider Obstetrics & Gynecology
DX: O09.42 Supervision of pregnancy with grand multiparity, second trimester (principal); Z3A.14 14 weeks gestation of pregnancy; Z78.9 Other specified health status
CPT/HCPCS: 99213; G0463

== ENCOUNTER 2024-08-03 09:51 | Outpatient (AMB) | payer MEDICAID, SELFPAY ==
[2024-08-03 10:26] VITALS: BP 108/69; PULSE 98; RESP 18; TEMP 36.2; O2SAT 98; BMI 27.2
--- NOTE | 2024-08-03 10:26 | OBCLNT_ITS ---
Vital Signs 08/03/24 10:26 Height 1.55 m Height Method Stated Weight 65.431 kg Weight Measurement Method Standing Scale BMI 27.2 BP 108/69 Blood Pressure Source Automatic Cuff Blood Pressure Location Left Upper Arm Position Sitting Respiration 18 Pulse 98 Pulse Source Monitor Temp 97.2 F Temp Source Oral Pulse Oximetry (%) 98 Oxygen Delivery Method Room Air Allergies/Home Meds Allergies & Medications Allergies No Known Allergies Allergy (Verified 08/03/24 10:27) Medication Reconciliation vitamin with calcium no.72-iron 27 mg-folic acid 1 mg tablet ( Vitamins Plus Low Iron) 1 tab PO QDAY 90 days #90 tabs 08/03/24 [Rx] Intake Visit Data Collection New Patient or Established: Established Patient (seen at [facility] within 3 years) Reason for Visit:: - Routine visit at 18 weeks and 1 day gestation - Mild nausea Seen by Clinical Staff ONLY (RN/MA): No Trimmer Loader Required: No Do You Feel Safe at Home: Yes Authorities Contacted: N/A PCP or OBGYN visit in last 3 months: Yes Date of Last PCP or OBGYN visit: 07/06/24 Hx Now: Yes Are you currently on any form of Control: No Pain Present Currently: No Pain Scale Used: Carpio-Montgomery/Numerical Pain scale:: 0 Smoking Status Smoking Status: Never smoker Questionnaires Covid-19 Vaccine Questionnaire Has patient been vacinated for Covid-19 Have you been vacinated for Covid-19: Yes PHQ-9 PHQ-2 Over the last 2 weeks, how often have you been bothered by any of the following problems? 1. Little interest or pleasure in doing things: not at all 2. Feeling down, depressed, or hopeless: not at all Total score: 0 PHQ-9 3. Trouble falling or staying asleep, or sleeping too much: Not at all 4. Feeling tired or having little energy: Not at all 5. Poor appetite or overeating: Not at all 6. Feeling bad about yourself - or that you are a failure or have let yourself or your family down: Not at all 7. Trouble concentrating on things, such as reading the newspaper or watching television: Not at all 8. Moving or speaking so slowly that other people could have noticed? - Or the opposite - being so fidgety or restless that you have been moving around a lot more than usual: not at all 9. Thoughts that you would be better off or of hurting yourself in some way: Not at all Total score: 0 If you checked off any problems, how difficult have these problems made it for you to do your work, take care of things at home, or get along with other people?: not difficult at all Source: Developed by Drs. Magen Davalos, Magalis Vu, Kevin Gonzalez and colleagues, with an educational farhat from [employer]. 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 - Patient reports: - Ongoing nausea, though improving - Feeling movements as little flutters internally - Denies any specific complaints or concerns at this visit - Adherence: - vitamins prescribed, but patient reports difficulty obtaining them from the pharmacy No contractions/ LOF/VB, reports good FM No CHEUNG/VC/RUQ/Epig pain Care OB Visit Log OB Flowsheet Initial Weight: Not Recorded Date -?-?-?-?-?-?-?-?-?-?-?-?- EGA Weight BP Alb Glu CTX Pres Fundal ht FHR Mov Dilation Station Effacement Hx Notes Visit Note 07/06/24 -?-?-?-?-?-?-?-?-?-?-?-?- 14w 1d 63.219 kg 108/70 175 29yo @14w1d presents for review of lab results. She reports no specific complaints or concerns during this visit. - Date: 06/19/2024 - Rubella: Non-immune - Hepatitis B: Negative - Hepatitis C: Negative - Blood group: O positive - Antibody screen: Negative - HIV: Negative - Gonorrhea: Negative - Chlamydia: Negative - Hemoglobin: 11.7 g/dL - Platelets: 317 - Urinalysis: Trace ketones, many bact eria - Urine culture: <10,000 CFU/mL - NIPT: Negative, consistent with female gender 08/03/24 -?-?-?-?-?-?-?-?-?-?--?-?- 18w 1d 65.431 kg 108/69 Stefanie Lloyd, 21 y/o , presents for transfer of care at ~35 weeks gestation. LMP is uncertain; BRITTANI 09/23/2024 per prior US. progressing without major complications. Reports Firth Bradford contractions that resolve with position change. movement reassuring. Prior was a full-term vaginal delivery at 38 weeks. Current ultrasound confirms breech presentation (footling), and fetus is measuring about 1 week ahead. No contractions or other concerns today. Labs notable for mild anemia and asymptomatic bacteriuria. Maternity 21 negative for aneuploidy; fetus is female. Plan: Schedule for 39 weeks Repeat ultrasound on admission to confir m position If spontaneous version occurs, consider vaginal delivery ECV not recommended; discussed risks/elizabeth efits with patient Continue vitamins Reassess mild anemia (Hgb 10.7) at next visit Review urine culture sensitivity for coa gulase-negative staph; determine treatment need based on colony count and symptoms Follow up in 2 weeks for continued monit oring and pre-op planning BRITTANI Calculator Estimated Delivery Date Method Current WG Current Estimate 01/03/25 Ultrasound #1 19w 2d Other Estimates 12/30/24 LMP (Certain) 19w 6d Exam General General Appearance: alert, in no apparent distress and healthy appearing Head Head exam: atraumatic Neck Neck exam: Present normal inspection and trachea midline Chest Chest inspection: Present normal inspection and symmetric chest wall rise External exam: Present normal external exam; Absent tenderness Neuro Neurological exam: Present oriented X3 Psych Psychiatric exam: Present normal affect and normal mood Office Procedures OB Clinic LOC & Office Proc's Nursing/Assessment Patient Status: Established Patient OB Clinic Nursing Assessment: BP Monitoring, Medication Reconciliation, Update PMH in EMR and Vital Signs OB Clinic Coordination of Care: Consent,records obtained, informed consent, Education Simp Pt/Fam, Lab and Imaging orders and Staff clarify orders Established Patient Charge Established Patient Point Assignment: 90 Established Patient Point Charge: EP Level 3 (80-115) Assessment & Plan Diagnosis / Problem List (1) Grand multiparity: Status: Acute (2) Supervision of high risk , unspecified, first trimester: Status: Acute (3) Normal labor and delivery: Status: Acute Plan Problem List - , 18 weeks and 1 day - Nausea in Assessment - 6, para 5 at 18 weeks and 1 day gestation - Estimated due date: January 03 - Nausea improving - movements: patient reports feeling subtle internal movements Plan - Next appointment scheduled in 4 weeks - 20-week anatomy ultrasound to be scheduled at [facility] in [place] - Glucose test for diabetes to be administered at next visit - Patient to expect call from [facility] regarding ultrasound appointment - Provided printout of vitamin prescription for Alfredo Clarke Educated the patient on labor signs, including regular contractions, lower back pain, and changes in vaginal discharge. Advised avoiding heavy lifting and getting adequate rest. Instructed to contact the office immediately if any signs occur. Discussed the importance of a balanced diet rich in folic acid, iron, and calcium, and provided a list of recommended and to-avoid foods. Emphasized avoiding high-sugar foods to reduce gestational diabetes risk. Encouraged hydration and frequent, small meals for energy..
[2024-08-03 15:30] LABS: Bilirubin,Urine Clinitek Negative (Negative); Blood,Urine Clinitek 1+ (Negative); Glucose, Urine Clinitek Negative (Negative); Ketones,Urine Clinitek Negative (Negative); Leukocyte Esterase,Urine Clin 1+ (Negative); Nitrite,Urine Clinitek Negative (Negative); Protein,Urine Clinitek Negative (Neg - Trace); Urobilinogen,Urine Clinitek 0.2 mg/dL (0.0-1.0)
== END 2024-08-03 10:40 | disposition home or self-care (01) ==
LOC: HODSOBC 09:51
PROVIDERS: Advanced Practice Midwife; Supervising Provider Obstetrics & Gynecology; Visit Provider Obstetrics & Gynecology
DX: O09.42 Supervision of pregnancy with grand multiparity, second trimester (principal); O09.892 Supervision of other high risk pregnancies, second trimester; Z3A.18 18 weeks gestation of pregnancy; O32.8XX0 Maternal care for other malpresentation of fetus, not applicable or unspecified; O99.012 Anemia complicating pregnancy, second trimester
CPT/HCPCS: 81001; 99213; G0463

== ENCOUNTER 2024-09-10 14:48 | Outpatient (AMB) | payer MEDICAID, SELFPAY ==
[2024-09-10 14:57] VITALS: BP 102/66; PULSE 84; RESP 17; TEMP 36.6; O2SAT 97; BMI 28.3
--- NOTE | 2024-09-10 14:57 | OBCLNT_ITS ---
Vital Signs 09/10/24 14:57 Height 1.55 m Height Method Measured Weight 68.096 kg Weight Measurement Method Standing Scale BMI 28.3 BP 102/66 Blood Pressure Source Automatic Cuff Blood Pressure Location Right Upper Arm Position Sitting Respiration 17 Pulse 84 Pulse Source Monitor Temp 97.9 F Temp Source Temporal Artery Scan Pulse Oximetry (%) 97 Oxygen Delivery Method Room Air Allergies/Home Meds Allergies & Medications Allergies No Known Allergies Allergy (Verified 10/16/24 15:43) Medication Reconciliation vitamins with calcium no.72-iron 27 mg-folic acid 1 mg tablet ( Vitamins Plus Low Iron) 1 tab PO QDAY 90 days #90 tabs 08/03/24 [Rx Confirmed 10/16/24] docusate sodium 100 mg capsule (Stool Softener) 100 mg PO QDAY 90 days #90 caps 10/16/24 [Rx] ferrous sulfate 325 mg (65 mg iron) tablet 325 mg PO BID 90 days #180 tabs 10/16/24 [Rx] Intake Visit Data Collection New Patient or Established: Established Patient (seen at [facility] within 3 years) Reason for Visit:: OBC Seen by Clinical Staff ONLY (RN/MA): No Executive Officer Special Warfare Team Required: No Do You Feel Safe at Home: Yes Authorities Contacted: N/A PCP or OBGYN visit in last 3 months: Yes Date of Last PCP or OBGYN visit: 08/03/24 Hx Now: Yes Are you currently on any form of Control: No Pain Present Currently: No Pain Scale Used: Carpio-Montgomery/Numerical Pain scale:: 0 Smoking Status Smoking Status: Never smoker Questionnaires Covid-19 Vaccine Questionnaire Has patient been vacinated for Covid-19 Have you been vacinated for Covid-19: No PHQ-9 PHQ-2 Over the last 2 weeks, how often have you been bothered by any of the following problems? 1. Little interest or pleasure in doing things: not at all 2. Feeling down, depressed, or hopeless: not at all Total score: 0 PHQ-9 3. Trouble falling or staying asleep, or sleeping too much: Not at all 4. Feeling tired or having little energy: Not at all 5. Poor appetite or overeating: Not at all 6. Feeling bad about yourself - or that you are a failure or have let yourself or your family down: Not at all 7. Trouble concentrating on things, such as reading the newspaper or watching television: Not at all 8. Moving or speaking so slowly that other people could have noticed? - Or the opposite - being so fidgety or restless that you have been moving around a lot more than usual: not at all 9. Thoughts that you would be better off or of hurting yourself in some way: Not at all Total score: 0 Source: Developed by Drs. Magen Davalos, Magalis Vu, Kevin Gonzalez and colleagues, with an educational farhat from [employer]. 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 Past Medical History: No Hx Neurological Disorders, No Hx Hypothyroidism, No Hx Hyperthyroidism, No Hx Breast Cancer, No Hx Cardiac Disorders, No Hx Hypertension, Yes Hx Blood Disorders (BLOOD TRANSFUSION 2017), Yes Hx Anemia, No Hx Gastrointestinal Disorders, No Hx Renal Disease, No Hx Deep Vein Thrombosis, No Hx Diabetes Mellitus Type 1, No Hx Diabetes Mellitus Type 2 and No Hx Polycystic Ovarian Syndrome Care OB Visit Log OB Flowsheet Initial Weight: Not Recorded Date -?-?-?-?-?-?-?-?-?-?-?-?- EGA Weight BP Alb Glu CTX Pres Fundal ht FHR Mov Dilation Station Effacement Hx Notes Visit Note 07/06/24 -?-?-?-?-?-?-?-?-?-?-?-?- 14w 1d 63.219 kg 108/70 175 29yo @14w1d presents for review of lab results. She reports no specific complaints or concerns during this visit. - Date: 06/19/2024 - Rubella: Non-immune - Hepatitis B: Negative - Hepatitis C: Negative - Blood group: O positive - Antibody screen: Negative - HIV: Negative - Gonorrhea: Negative - Chlamydia: Negative - Hemoglobin: 11.7 g/dL - Platelets: 317 - Urinalysis: Trace ketones, many bact eria - Urine culture: <10,000 CFU/mL - NIPT: Negative, consistent with female gender 08/03/24 -?-?-?-?-?-?-?-?-?-?-?-?- 18w 1d 65.431 kg 108/69 Stefanie Lloyd, 21 y/o , presents for transfer of care at ~35 weeks gestation. LMP is uncertain; BRITTANI 09/23/2024 per prior US. progressing without major complications. Reports Abell Bradford contractions that resolve with position change. movement reassuring. Prior was a full-term vaginal delivery at 38 weeks. Current ultrasound confirms breech presentation (footling), and fetus is measuring about 1 week ahead. No contractions or other concerns today. Labs notable for mild anemia and asymptomatic bacteriuria. Maternity 21 negative for aneuploidy; fetus is female. Plan: Schedule for 39 weeks Repeat ultrasound on admission to confir m position If spontaneous version occurs, consider vaginal delivery ECV not recommended; discussed risks/elizabeth efits with patient Continue vitamins Reassess mild anemia (Hgb 10.7) at next visit Review urine culture sensitivity for coa gulase-negative staph; determine treatment need based on colony count and symptoms Follow up in 2 weeks for continued monit oring and pre-op planning 09/10/24 -?-?-?-?-?-?-?-?-?-?-?-?- 23w 4d 68.096 kg 102/66 absent cephalic 25 155 active at ~20w for routine visit, all prior SVDs. Initial labs reviewed. Plan: Review labs, attend 20w anatomy US as scheduled. Scripts re-sent BRITTANI Calculator Estimated Delivery Date Method Current WG Current Estimate 01/03/25 Ultrasound #1 29w 0d Other Estimates 12/30/24 LMP (Certain) 29w 4d Office Procedures OB Clinic LOC & Office Proc's Nursing/Assessment Patient Status: Established Patient OB Clinic Nursing Assessment: Update PMH in EMR and Vital Signs OB Clinic Coordination of Care: Complex Care and Chronic Disease 1-5, Consent,records obtained, informed consent, Education Simp Pt/Fam and Staff clarify orders Special Needs: Heart tones Established Patient Charge Established Patient Point Assignment: 110 Established Patient Point Charge: EP Level 3 (80-115) Assessment & Plan Diagnosis / Problem List (1) Anemia affecting : Status: Acute (2) Renal agenesis, , affecting care of mother, antepartum: Status: Acute (3) Grand multiparity: Status: Acute
== END 2024-09-10 15:05 | disposition home or self-care (01) ==
LOC: HODSOBC 14:48
PROVIDERS: Supervising Provider Obstetrics & Gynecology; Visit Provider Obstetrics & Gynecology
DX: O09.42 Supervision of pregnancy with grand multiparity, second trimester (principal); O09.892 Supervision of other high risk pregnancies, second trimester; O99.012 Anemia complicating pregnancy, second trimester; O35.EXX0 Maternal care for other (suspected) fetal abnormality and damage, fetal genitourinary anomalies, not applicable or unspecified; Z3A.23 23 weeks gestation of pregnancy
CPT/HCPCS: 99213; G0463

== ENCOUNTER 2024-10-16 15:29 | Outpatient (AMB) | payer MEDICAID, SELFPAY ==
[2024-10-16 15:42] VITALS: BP 110/72; PULSE 96; RESP 20; TEMP 36.6; O2SAT 98; BMI 29.5
--- NOTE | 2024-10-16 15:42 | OBCLNT_ITS ---
Vital Signs 10/16/24 15:42 Height 1.55 m Height Method Stated Weight 70.987 kg Weight Measurement Method Standing Scale BMI 29.5 BP 110/72 Blood Pressure Source Automatic Cuff Blood Pressure Location Left Upper Arm Position Sitting Respiration 20 Pulse 96 Pulse Source Monitor Temp 97.8 F Temp Source Oral Pulse Oximetry (%) 98 Allergies/Home Meds Allergies & Medications Allergies No Known Allergies Allergy (Verified 12/08/24 10:03) Medication Reconciliation vitamins with calcium no.72-iron 27 mg-folic acid 1 mg tablet ( Vitamins Plus Low Iron) 1 tab PO QDAY 90 days #90 tabs 08/03/24 [Rx Confirmed 12/08/24] docusate sodium 100 mg capsule (Stool Softener) 100 mg PO QDAY 90 days #90 caps 10/16/24 [Rx Confirmed 12/08/24] ferrous sulfate 325 mg (65 mg iron) tablet 325 mg PO BID 90 days #180 tabs 10/16/24 [Rx Confirmed 12/08/24] Intake Visit Data Collection New Patient or Established: Established Patient (seen at [facility] within 3 years) Reason for Visit:: CARE Seen by Clinical Staff ONLY (RN/MA): No Message And Delivery Service Pricer Required: No Do You Feel Safe at Home: Yes Authorities Contacted: N/A PCP or OBGYN visit in last 3 months: Yes Hx Now: Yes Are you currently on any form of Control: No Pain Present Currently: No Pain Scale Used: Carpio-Montgomery/Numerical Smoking Status Smoking Status: Never smoker Questionnaires Covid-19 Vaccine Questionnaire Has patient been vacinated for Covid-19 Have you been vacinated for Covid-19: Yes PHQ-9 PHQ-2 Over the last 2 weeks, how often have you been bothered by any of the following problems? 1. Little interest or pleasure in doing things: not at all 2. Feeling down, depressed, or hopeless: not at all Total score: 0 PHQ-9 3. Trouble falling or staying asleep, or sleeping too much: Not at all 4. Feeling tired or having little energy: Not at all 5. Poor appetite or overeating: Not at all 6. Feeling bad about yourself - or that you are a failure or have let yourself or your family down: Not at all 7. Trouble concentrating on things, such as reading the newspaper or watching television: Not at all 8. Moving or speaking so slowly that other people could have noticed? - Or the opposite - being so fidgety or restless that you have been moving around a lot more than usual: not at all 9. Thoughts that you would be better off or of hurting yourself in some way: Not at all Total score: 0 Source: Developed by Drs. Magen Davalos, Magalis Vu, Kevin Gonzalez and colleagues, with an educational farhat from [employer]. 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: Past Medical History Past Medical History: No Hx Neurological Disorders, No Hx Hypothyroidism, No Hx Hyperthyroidism, No Hx Breast Cancer, No Hx Cardiac Disorders, No Hx Hypertension, Yes Hx Blood Disorders (BLOOD TRANSFUSION 2017), Yes Hx Anemia, No Hx Gastrointestinal Disorders, No Hx Renal Disease, No Hx Deep Vein Thrombosis, No Hx Diabetes Mellitus Type 1, No Hx Diabetes Mellitus Type 2 and No Hx Polycystic Ovarian Syndrome Care OB Visit Log OB Flowsheet Initial Weight: Not Recorded Date -?-?-?-?-?-?-?-?-?-?-?-?- EGA Weight BP Alb Glu CTX Pres Fundal ht FHR Mov Dilation Station Effacement Hx Notes Visit Note 07/06/24 -?-?-?-?-?-?-?-?-?-?-?-?- 14w 1d 63.219 kg 108/70 175 29yo @14w1d presents for review of lab results. She reports no specific complaints or concerns during this visit. - Date: 06/19/2024 - Rubella: Non-immune - Hepatitis B: Negative - Hepatitis C: Negative - Blood group: O positive - Antibody screen: Negative - HIV: Negative - Gonorrhea: Negative - Chlamydia: Negative - Hemoglobin: 11.7 g/dL - Platelets: 317 - Urinalysis: Trace ketones, many bact eria - Urine culture: <10,000 CFU/mL - NIPT: Negative, consistent with female gender 08/03/24 -?-?-?-?-?-?-?-?-?-?-?-?- 18w 1d 65.431 kg 108/69 Stefanie Lloyd, 21 y/o , presents for transfer of care at ~35 weeks gestation. LMP is uncertain; BRITTANI 09/23/2024 per prior US. progressing without major complications. Reports Rashid Bradford contractions that resolve with position change. movement reassuring. Prior was a full-term vaginal delivery at 38 weeks. Current ultrasound confirms breech presentation (footling), and fetus is measuring about 1 week ahead. No contractions or other concerns today. Labs notable for mild anemia and asymptomatic bacteriuria. Maternity 21 negative for aneuploidy; fetus is female. Plan: Schedule for 39 weeks Repeat ultrasound on admission to confir m position If spontaneous version occurs, consider vaginal delivery ECV not recommended; discussed risks/elizabeth efits with patient Continue vitamins Reassess mild anemia (Hgb 10.7) at next visit Review urine culture sensitivity for coa gulase-negative staph; determine treatment need based on colony count and symptoms Follow up in 2 weeks for continued monit oring and pre-op planning 09/10/24 -?-?-?-?-?-?-?-?-?-?-?-?- 23w 4d 68.096 kg 102/66 absent cephalic 25 155 active at ~20w for routine visit, all prior SVDs. Initial labs reviewed. Plan: Review labs, attend 20w anatomy US as scheduled. Scripts re-sent 10/16/24 -?-?-?-?-?-?-?-?-?-?-?-?- 28w 5d 70.987 kg 110/72 absent cephalic 30 125 No contractions, LOF, VB and reports good FM. Denies CHEUNG, VC, and epigastric pain. 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) - Normal right kidney - Female fetus - Rest of anatomy survey within normal limits - Patient was counseled by [facility] doctor ab out left renal agenesis - Patient reports previous ligament pain with movement and walking - Pain has improved - Denies any issues with her other children - Follow up with [facility] for next ultrasound on November 18, 2024 - Prescribe iron supplement for anemia, to be sent to [place] - Return for visit in 4 weeks - Subsequent appointments to be schedule d every 2 weeks after next visit - Patient advised to obtain schwarz pport belt from [facility] for ligament pain - Disability form process explained: * Patient to fill out first three page s of [place] red form * Submit to BRITTANI office * Provider will complete last three pa ges - Schedule 4-week follow-up appointment at front office clerk 11/10/24 -?-?-?-?-?-?-?-?-?-?-?-?- 32w 2d 73.652 kg 113/73 absent cephalic 32 145 active 32w2d with left renal agenesis, reports episodic cramping and pelvic pressure, no LOF/VB, FM good, FHR 142. Plan: Instruct ed to go to L&D if symptoms recur, monitor for CTX when symptomatic, U/S and bacillus appt next Wed, f/u in 2 weeks, disability form to be completed. 11/24/24 -?-?-?-?-?-?-?-?-?-?-?-?- 34w 2d 73.709 kg 119/73 occasional cephalic 34 148 active at 34 weeks 2 days gestation with unilateral renal agenesis, presenting with episodic cramping and pelvic pressure. MFM ultrasound today showed fetus measuring 33 weeks 3 days, EFW at 97th percentile, AC at 99th percentile, JIMMY 16, absent left kidney, and new finding of simple ovarian cyst versus cystic kidney. Patient was evaluated on labor and delivery for threatened labor, which was ruled out. renal agenesis is noted as the primary concern, with macrosomia and potential ovarian/renal cyst as secondary findings. Plan - Follow up in 2 weeks - Return to Labor and Delivery if experi encing signs of labor - Continue monitoring for labor symptoms 12/08/24 -?-?-?-?-?-?-?-?-?-?-?-?- 36w 2d 75.41 kg 115/75 occasional cephalic 36 active - History of fetus with left renal agenesis. - Recent MFM ultrasound findings: - Abdominal circumference at 99th perc entile - Estimated weight at 97th perce ntile - Amniotic fluid index of 16 - New finding of simple ovarian cyst v ersus cystic kidney on the contralateral side - Recent admission to Labor and Delivery for threatened pre-term labor, which has since been ruled out - Current symptoms: - Reports feeling pressure in the [place] om that comes and goes - Denies contractions - Unsure about leaking fluid - movement: Reports baby is active - Patient to attend MFM ultrasound appointment on Saturday - Follow-up appointment scheduled for ne xt week after MFM ultrasound - Discuss MFM recommendations regarding early delivery vs. waiting for labor at next appointment - Consider induction at 39 weeks (to be confirmed) - Potential for Dr. Villalpando to perform deli very with Dr. Gardner on standby - Provider to complete additional medica l information request BRITTANI Calculator Estimated Delivery Date Method Current WG Current Estimate 01/03/25 Ultrasound #1 37w 0d Other Estimates 12/30/24 LMP (Certain) 37w 4d Specific Issue/Plans SatNov 24 2024 - [facility] Ultrasound: - Gestational age: 33 weeks and 3 days - EFW: 97th percentile - AC: 99th percentile - JIMMY: 16 - Absent left kidney - Simple ovarian cyst versus cystic kidney (new finding) Notes Visit Date: 10/16/24 Last Updated by: Rosales Gardner MD Laboratory, Imaging, and Diagnostic Test Results - [facility] Ultrasound (10/07/2024 at 25 weeks 2 days): - Absent left kidney - Right kidney normal in appearance - Female gender - Rest of anatomy survey within normal limits - Labs (10/02/2024): - CBC: Hemoglobin 9.1 g/dL (low, indicating anemia) - CMP: Glucose 130 mg/dL - Hemoglobin A1c: 5.0% - One-hour glucose screenin mg/dL (normal, up to 139 mg/dL) - Uric acid: 2.9 mg/dL - LDH: 143 U/L Office Procedures OB Clinic LOC & Office Proc's Nursing/Assessment Patient Status: Established Patient OB Clinic Nursing Assessment: Medication Reconciliation, Update PMH in EMR and Vital Signs OB Clinic Coordination of Care: Complex Care and Chronic Disease 1-5, Consent,records obtained, informed consent, Education Simp Pt/Fam, Lab and Imaging orders, Results/Orders obtained and Staff clarify orders Special Needs: Heart tones Established Patient Charge Established Patient Point Assignment: 135 Established Patient Point Charge: EP Level 4 (120-155) Assessment & Plan Diagnosis / Problem List (1) Renal agenesis, , affecting care of mother, antepartum: Status: Acute (2) Grand multiparity: Status: Acute (3) Supervision of high risk , unspecified, first trimester: Status: Acute (4) Anemia affecting : Status: Acute Plan Problem List - , 28 weeks and 5 days gestation - left renal agenesis - Anemia in Assessment at 28 weeks 5 days gestation presenting for routine care. MFM ultrasound at 25 weeks 2 days revealed left renal agenesis with normal right kidney. Recent lab results indicate anemia with hemoglobin of 9.1. One- hour glucose screening was 135 mg/dL, within normal limits. Patient reports experiencing ligament pain with movement and walking. A1c was 5.0, uric acid 2.9, and LDH 143, all within normal range. heart rate noted as 125 bpm, which is normal. Plan - Follow up with [facility] for next ultrasound on November 18, 2024 - Prescribe iron supplement for anemia, to be sent to [facility] - Return for visit in 4 weeks - Subsequent appointments to be scheduled every 2 weeks after next visit - Patient advised to obtain support belt from [facility] for ligament pain - Disability form process explained: * Patient to fill out first three pages of [place] red form * Submit to BRITTANI office * Provider will complete last three pages - Schedule 4-week follow-up appointment at front office clerk 1. Progress Reviewed gestational age, growth, and heart rate. Planned frequent visits (every 2 weeks until 36 weeks, then weekly). 2. Instructed patient to monitor movements and report decreases immediately. 3. Testing Counseled on routine third-trimester labs per guidelines. Discussed potential need for ultrasound or monitoring based on risk factors. 4. Preeclampsia Precaution Educated on preeclampsia signs: severe headache, vision changes, right upper quadrant pain, sudden swelling. Advised urgent reporting of symptoms and discussed blood pressure monitoring if high risk. 5. Labor Precautions Reviewed labor signs: regular contractions, pelvic pressure, back pain, bleeding, or fluid leakage. Instructed to seek immediate care for these symptoms. 6. Lifestyle and Delivery Preparation Reinforced vitamins, nutrition, and safe activity. Discussed plan, pain management, and . Advised on labor preparation (e.g., hospital bag) and expectations. 7. Psychosocial Support Assessed emotional well-being and offered resources for mental health or parenting support.
== END 2024-10-16 15:59 | disposition home or self-care (01) ==
LOC: HODSOBC 15:29
PROVIDERS: PCP Obstetrics & Gynecology; Referring Provider Obstetrics & Gynecology; Supervising Provider Obstetrics & Gynecology; Visit Provider Obstetrics & Gynecology
DX: O09.893 Supervision of other high risk pregnancies, third trimester (principal); O35.EXX0 Maternal care for other (suspected) fetal abnormality and damage, fetal genitourinary anomalies, not applicable or unspecified; O99.012 Anemia complicating pregnancy, second trimester; O09.43 Supervision of pregnancy with grand multiparity, third trimester; Z3A.28 28 weeks gestation of pregnancy
CPT/HCPCS: 99214; G0463

== ENCOUNTER 2024-11-13 22:29 | Observation (INO) | payer MEDICAID, SELFPAY ==
[2024-11-13] VITALS (16 sets, daily range): BP systolic 94–125; BP diastolic 55–70; PULSE 79–103; RESP 16–98; TEMP 36.8; O2SAT 97–99; BMI 29.4
[2024-11-14 00:04] VITALS: PULSE 92; O2SAT 98
== END 2024-11-14 00:15 | disposition home or self-care (01) ==
PROVIDERS: Admitting Provider Obstetrics & Gynecology; Visit Provider Obstetrics & Gynecology
DX: O47.1 False labor at or after 37 completed weeks of gestation (principal); Z3A.32 32 weeks gestation of pregnancy
CPT/HCPCS: 59025; 59899

== ENCOUNTER 2024-11-24 13:23 | Outpatient (AMB) | payer MEDICAID, SELFPAY ==
--- NOTE | 2024-11-24 13:40 | OBCLNT_ITS ---
Vital Signs 11/24/24 13:41 Weight 73.709 kg Weight Measurement Method Standing Scale BP 119/73 Blood Pressure Source Automatic Cuff Blood Pressure Location Left Upper Arm Position Sitting Respiration 16 Pulse 95 Pulse Source Monitor Temp 97.2 F Temp Source Oral Pulse Oximetry (%) 98 Oxygen Delivery Method Room Air Allergies/Home Meds Allergies & Medications Allergies No Known Allergies Allergy (Verified 11/24/24 13:42) Medication Reconciliation vitamins with calcium no.72-iron 27 mg-folic acid 1 mg tablet ( Vitamins Plus Low Iron) 1 tab PO QDAY 90 days #90 tabs 08/03/24 [Rx Confirmed 11/24/24] docusate sodium 100 mg capsule (Stool Softener) 100 mg PO QDAY 90 days #90 caps 10/16/24 [Rx Confirmed 11/24/24] ferrous sulfate 325 mg (65 mg iron) tablet 325 mg PO BID 90 days #180 tabs 10/16/24 [Rx Confirmed 11/24/24] Intake Visit Data Collection New Patient or Established: Established Patient (seen at [facility] within 3 years) Reason for Visit:: OBC Seen by Clinical Staff ONLY (RN/MA): No Corporate Travel Coordinator Required: No Do You Feel Safe at Home: Yes Authorities Contacted: N/A PCP or OBGYN visit in last 3 months: Yes Date of Last PCP or OBGYN visit: 11/14/24 Hx Now: Yes Are you currently on any form of Control: No Pain Present Currently: No Pain Scale Used: Carpio-Montgomery/Numerical Pain scale:: 0 Smoking Status Smoking Status: Never smoker Questionnaires Covid-19 Vaccine Questionnaire Has patient been vacinated for Covid-19 Have you been vacinated for Covid-19: No PHQ-9 PHQ-2 Over the last 2 weeks, how often have you been bothered by any of the following problems? 1. Little interest or pleasure in doing things: not at all 2. Feeling down, depressed, or hopeless: not at all Total score: 0 PHQ-9 3. Trouble falling or staying asleep, or sleeping too much: Not at all 4. Feeling tired or having little energy: Not at all 5. Poor appetite or overeating: Not at all 6. Feeling bad about yourself - or that you are a failure or have let yourself or your family down: Not at all 7. Trouble concentrating on things, such as reading the newspaper or watching television: Not at all 8. Moving or speaking so slowly that other people could have noticed? - Or the opposite - being so fidgety or restless that you have been moving around a lot more than usual: not at all 9. Thoughts that you would be better off or of hurting yourself in some way: Not at all Total score: 0 If you checked off any problems, how difficult have these problems made it for you to do your work, take care of things at home, or get along with other people?: not difficult at all Source: Developed by Drs. Magen Davalos, Magalis Vu, Kevin Gonzalez and colleagues, with an educational farhat from [employer]. Depression screen completed yes Social History Living Situation History Lives With: Family Housing: House Tobacco History Smoking Status: Never smoker Second Hand Smoke Exposure: No Alcohol History Alcohol Intake: Former Alcohol Intake Frequency: holidays/special occasions only Substance Use History Substance Use: none Domestic Abuse History Do You Feel Safe at Home: Yes CV RN: Past Medical History Past Medical History: No Hx Neurological Disorders, No Hx Hypothyroidism, No Hx Hyperthyroidism, No Hx Breast Cancer, No Hx Cardiac Disorders, No Hx Hypertension, Yes Hx Blood Disorders (BLOOD TRANSFUSION 2017), Yes Hx Anemia, No Hx Gastrointestinal Disorders, No Hx Renal Disease, No Hx Deep Vein Thrombosis, No Hx Diabetes Mellitus Type 1, No Hx Diabetes Mellitus Type 2 and No Hx Polycystic Ovarian Syndrome Care OB Visit Log OB Flowsheet Initial Weight: Not Recorded Date -?-?-?-?-?-?-?-?-?-?-?-?- EGA Weight BP Alb Glu CTX Pres Fundal ht FHR Mov Dilation Station Effacement Hx Notes Visit Note 07/06/24 -?-?-?-?-?-?-?-?-?-?-?-?- 14w 1d 63.219 kg 108/70 175 29yo @14w1d presents for review of lab results. She reports no specific complaints or concerns during this visit. - Date: 06/19/2024 - Rubella: Non-immune - Hepatitis B: Negative - Hepatitis C: Negative - Blood group: O positive - Antibody screen: Negative - HIV: Negative - Gonorrhea: Negative - Chlamydia: Negative - Hemoglobin: 11.7 g/dL - Platelets: 317 - Urinalysis: Trace ketones, many bact eria - Urine culture: <10,000 CFU/mL - NIPT: Negative, consistent with female gender 08/03/24 -?-?-?-?-?-?-?-?-?-?-?-?- 18w 1d 65.431 kg 108/69 Stefanie Lloyd, 21 y/o , presents for transfer of care at ~35 weeks gestation. LMP is uncertain; BRITTANI 09/23/2024 per prior US. progressing without major complications. Reports Stutsman Bradford contractions that resolve with position change. movement reassuring. Prior was a full-term vaginal delivery at 38 weeks. Current ultrasound confirms breech presentation (footling), and fetus is measuring about 1 week ahead. No contractions or other concerns today. Labs notable for mild anemia and asymptomatic bacteriuria. Maternity 21 negative for aneuploidy; fetus is female. Plan: Schedule for 39 weeks Repeat ultrasound on admission to [facility] m position If spontaneous version occurs, consider vaginal delivery ECV not recommended; discussed risks/elizabeth efits with patient Continue vitamins Reassess mild anemia (Hgb 10.7) at next visit Review urine culture sensitivity for coa gulase-negative staph; determine treatment need based on colony count and symptoms Follow up in 2 weeks for continued monit oring and pre-op planning 09/10/24 -?-?-?-?-?-?-?-?-?-?-?-?- 23w 4d 68.096 kg 102/66 absent cephalic 25 155 active at ~20w for routine visit, all prior SVDs. Initial labs reviewed. Plan: Review labs, attend 20w anatomy US as scheduled. Scripts re-sent 11/10/24 -?-?-?-?-?-?-?-?-?-?-?-?- 32w 2d 73.652 kg 113/73 absent cephalic 32 145 active 32w2d with left renal agenesis, reports episodic cramping and pelvic pressure, no LOF/VB, FM good, FHR 142. Plan: Instruct ed to go to L&D if symptoms recur, monitor for CTX when symptomatic, U/S and bacillus appt next Wed, f/u in 2 weeks, disability form to be completed. 11/24/24 -?-?-?-?-?-?-?-?-?-?-?-?- 34w 2d 73.709 kg 119/73 occasional cephalic 34 148 active at 34 weeks 2 days gestation with unilateral renal agenesis, presenting with episodic cramping and pelvic pressure. MFM ultrasound today showed fetus measuring 33 weeks 3 days, EFW at 97th percentile, AC at 99th percentile, JIMMY 16, absent left kidney, and new finding of simple ovarian cyst versus cystic kidney. Patient was evaluated on labor and delivery for threatened labor, which was ruled out. renal agenesis is noted as the primary concern, with macrosomia and potential ovarian/renal cyst as secondary findings. Plan - Follow up in 2 weeks - Return to Labor and Delivery if experi encing signs of labor - Continue monitoring for labor symptoms BRITTANI Calculator Estimated Delivery Date Method Current WG Current Estimate 01/03/25 Ultrasound #1 34w 3d Other Estimates 12/30/24 LMP (Certain) 35w 0d Specific Issue/Plans SatNov 24 2024 - [facility] Ultrasound: - Gestational age: 33 weeks and 3 days - EFW: 97th percentile - AC: 99th percentile - JIMMY: 16 - Absent left kidney - Simple ovarian cyst versus cystic kidney (new finding) Office Procedures OB Clinic LOC & Office Proc's Nursing/Assessment Patient Status: Established Patient OB Clinic Nursing Assessment: Medication Reconciliation, Update PMH in EMR and Vital Signs OB Clinic Coordination of Care: Education Complex Pt/Fam, Consent,records obtained, informed consent, Lab and Imaging orders and Staff clarify orders Special Needs: Heart tones Established Patient Charge Established Patient Point Assignment: 110 Established Patient Point Charge: EP Level 3 (80-115) Assessment & Plan Diagnosis / Problem List (1) Anemia affecting : Status: Acute (2) Renal agenesis, , affecting care of mother, antepartum: Status: Acute (3) Grand multiparity: Status: Acute
[2024-11-24 13:41] VITALS: BP 119/73; PULSE 95; RESP 16; TEMP 36.2; O2SAT 98
== END 2024-11-24 13:47 | disposition home or self-care (01) ==
PROVIDERS: Supervising Provider Obstetrics & Gynecology; Visit Provider Obstetrics & Gynecology
DX: O09.43 Supervision of pregnancy with grand multiparity, third trimester (principal); O09.893 Supervision of other high risk pregnancies, third trimester; Q60.0 Renal agenesis, unilateral; O99.013 Anemia complicating pregnancy, third trimester; Z3A.34 34 weeks gestation of pregnancy
CPT/HCPCS: 99213; G0463

== ENCOUNTER 2024-12-08 09:50 | Outpatient (AMB) | payer MEDICAID, SELFPAY ==
[2024-12-08 10:02] VITALS: BP 115/75; PULSE 97; RESP 16; TEMP 36.2; O2SAT 97; BMI 30.6
--- NOTE | 2024-12-08 10:02 | OBCLNT_ITS ---
Vital Signs 12/08/24 10:02 Height 1.57 m Height Method Stated Weight 75.41 kg Weight Measurement Method Standing Scale BMI 30.6 BP 115/75 Blood Pressure Source Automatic Cuff Blood Pressure Location Left Upper Arm Position Sitting Respiration 16 Pulse 97 Pulse Source Monitor Temp 97.2 F Temp Source Oral Pulse Oximetry (%) 97 Oxygen Delivery Method Room Air Allergies/Home Meds Allergies & Medications Allergies No Known Allergies Allergy (Verified 12/08/24 10:03) Medication Reconciliation vitamins with calcium no.72-iron 27 mg-folic acid 1 mg tablet ( Vitamins Plus Low Iron) 1 tab PO QDAY 90 days #90 tabs 08/03/24 [Rx Confirmed 12/08/24] docusate sodium 100 mg capsule (Stool Softener) 100 mg PO QDAY 90 days #90 caps 10/16/24 [Rx Confirmed 12/08/24] ferrous sulfate 325 mg (65 mg iron) tablet 325 mg PO BID 90 days #180 tabs 10/16/24 [Rx Confirmed 12/08/24] Intake Visit Data Collection New Patient or Established: Established Patient (seen at [facility] within 3 years) Reason for Visit:: OBC Seen by Clinical Staff ONLY (RN/MA): No Wound Care Nurse Required: No Do You Feel Safe at Home: Yes Authorities Contacted: N/A PCP or OBGYN visit in last 3 months: No Date of Last PCP or OBGYN visit: 11/24/24 Hx Now: Yes Are you currently on any form of Control: No Pain Present Currently: No Pain Scale Used: Carpio-Montgomery/Numerical Pain scale:: 0 Smoking Status Smoking Status: Never smoker Questionnaires Covid-19 Vaccine Questionnaire Has patient been vacinated for Covid-19 Have you been vacinated for Covid-19: No PHQ-9 PHQ-2 Over the last 2 weeks, how often have you been bothered by any of the following problems? 1. Little interest or pleasure in doing things: not at all 2. Feeling down, depressed, or hopeless: not at all Total score: 0 PHQ-9 3. Trouble falling or staying asleep, or sleeping too much: Not at all 4. Feeling tired or having little energy: Not at all 5. Poor appetite or overeating: Not at all 6. Feeling bad about yourself - or that you are a failure or have let yourself or your family down: Not at all 7. Trouble concentrating on things, such as reading the newspaper or watching television: Not at all 8. Moving or speaking so slowly that other people could have noticed? - Or the opposite - being so fidgety or restless that you have been moving around a lot more than usual: not at all 9. Thoughts that you would be better off or of hurting yourself in some way: Not at all Total score: 0 If you checked off any problems, how difficult have these problems made it for you to do your work, take care of things at home, or get along with other people?: not difficult at all Source: Developed by Drs. Magen Davalos, Magalis Vu, Kevin Gonzalez and colleagues, with an educational farhat from [employer]. 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 Medical History Past Medical History: No Hx Neurological Disorders, No Hx Hypothyroidism, No Hx Hyperthyroidism, No Hx Breast Cancer, No Hx Cardiac Disorders, No Hx Hypertension, Yes Hx Blood Disorders (BLOOD TRANSFUSION 2017), Yes Hx Anemia, No Hx Gastrointestinal Disorders, No Hx Renal Disease, No Hx Deep Vein Thrombosis, No Hx Diabetes Mellitus Type 1, No Hx Diabetes Mellitus Type 2 and No Hx Polycystic Ovarian Syndrome Care OB Visit Log OB Flowsheet Initial Weight: Not Recorded Date -?-?-?-?-?-?-?-?-?-?-?-?- EGA Weight BP Alb Glu CTX Pres Fundal ht FHR Mov Dilation Station Effacement Hx Notes Visit Note 07/06/24 -?-?-?-?-?-?-?-?-?-?-?-?- 14w 1d 63.219 kg 108/70 175 29yo @14w1d presents for review of lab results. She reports no specific complaints or concerns during this visit. - Date: 06/19/2024 - Rubella: Non-immune - Hepatitis B: Negative - Hepatitis C: Negative - Blood group: O positive - Antibody screen: Negative - HIV: Negative - Gonorrhea: Negative - Chlamydia: Negative - Hemoglobin: 11.7 g/dL - Platelets: 317 - Urinalysis: Trace ketones, many bact eria - Urine culture: <10,000 CFU/mL - NIPT: Negative, consistent with female gender 08/03/24 -?-?-?-?-?-?-?-?-?-?-?-?- 18w 1d 65.431 kg 108/69 Stefanie Lloyd, 21 y/o , presents for transfer of care at ~35 weeks gestation. LMP is uncertain; BRITTANI 09/23/2024 per kyle or US. progressing without major complications. Reports [place] contractions that resolve with position change. movement reassuring. Prior was a full-term vaginal delivery at 38 weeks. Current ultrasound confirms breech presentation (footling), and fetus is measuring about 1 week ahead. No contractions or other concerns today. Labs notable for mild anemia and asymptomatic bacteriuria. Maternity 21 negative for aneuploidy; fetus is female. Plan: Schedule for 39 weeks Repeat ultrasound on admission to confir m position If spontaneous version occurs, consider vaginal delivery ECV not recommended; discussed risks/elizabeth efits with patient Continue vitamins Reassess mild anemia (Hgb 10.7) at next visit Review urine culture sensitivity for coa gulase-negative staph; determine treatment need based on colony count and symptoms Follow up in 2 weeks for continued monit oring and pre-op planning 09/10/24 -?-?-?-?-?-?-?-?-?-?-?-?- 23w 4d 68.096 kg 102/66 absent cephalic 25 155 active at ~20w for routine visit, all prior SVDs. Initial labs reviewed. Plan: Review labs, attend 20w anatomy US as scheduled. Scripts re-sent 11/10/24 -?-?-?-?-?-?-?-?-?-?-?-?- 32w 2d 73.652 kg 113/73 absent cephalic 32 145 active 32w2d with left renal agenesis, reports episodic cramping and pelvic pressure, no LOF/VB, FM good, FHR 142. Plan: Instruct ed to go to L&D if symptoms recur, monitor for CTX when symptomatic, U/S and bacillus appt next Wed, f/u in 2 weeks, disability form to be completed. 11/24/24 -?-?-?-?-?-?-?-?-?-?-?-?- 34w 2d 73.709 kg 119/73 occasional cephalic 34 148 active at 34 weeks 2 days gestation with unilateral renal agenesis, presenting with episodic cramping and pelvic pressure. MFM ultrasound today showed fetus measuring 33 weeks 3 days, EFW at 97th percentile, AC at 99th percentile, JIMMY 16, absent left kidney, and new finding of simple ovarian cyst versus cystic kidney. Patient was evaluated on labor and delivery for threatened labor, which was ruled out. renal agenesis is noted as the primary concern, with macrosomia and potential ovarian/renal cyst as secondary findings. Plan - Follow up in 2 weeks - Return to Labor and Delivery if experi encing signs of labor - Continue monitoring for labor symptoms 12/08/24 -?-?-?-?-?-?-?-?-?-?-?-?- 36w 2d 75.41 kg 115/75 occasional cephalic 36 active - History of fetus with left renal agenesis. - Recent MFM ultrasound findings: - Abdominal circumference at 99th perc entile - Estimated weight at 97th perce ntile - Amniotic fluid index of 16 - New finding of simple ovarian cyst v ersus cystic kidney on the contralateral side - Recent admission to Labor and Delivery for threatened pre-term labor, which has since been ruled out - Current symptoms: - Reports feeling pressure in the [place] om that comes and goes - Denies contractions - Unsure about leaking fluid - movement: Reports baby is active - Patient to attend MFM ultrasound appointment on Saturday - Follow-up appointment scheduled for ne xt week after MFM ultrasound - Discuss MFM recommendations regarding early delivery vs. waiting for labor at next appointment - Consider induction at 39 weeks (to be confirmed) - Potential for Dr. Villalpando to perform deli very with Dr. Gardner on standby - Provider to complete additional medica l information request BRITTANI Calculator Estimated Delivery Date Method Current WG Current Estimate 01/03/25 Ultrasound #1 37w 0d Other Estimates 12/30/24 LMP (Certain) 37w 4d Specific Issue/Plans SatNov 24 2024 - MFM Ultrasound: - Gestational age: 33 weeks and 3 days - EFW: 97th percentile - AC: 99th percentile - JIMMY: 16 - Absent left kidney - Simple ovarian cyst versus cystic kidney (new finding) Office Procedures OB Clinic LOC & Office Proc's Nursing/Assessment Patient Status: Established Patient OB Clinic Nursing Assessment: Medication Reconciliation, Update PMH in EMR and Vital Signs OB Clinic Coordination of Care: Education Complex Pt/Fam, Consent,records obtained, informed consent, Lab and Imaging orders, Results/Orders obtained and Staff clarify orders Special Needs: Heart tones Miscellaneous Interventions: Pelvic Comp w/OB cult Established Patient Charge Established Patient Point Assignment: 130 Established Patient Point Charge: EP Level 4 (120-155) Assessment & Plan Diagnosis / Problem List (1) Anemia affecting : Status: Acute (2) Renal agenesis, , affecting care of mother, antepartum: Status: Acute (3) Grand multiparity: Status: Acute Plan Problem List - , 36 weeks and 2 days - 6, para 5 - Fetus with left renal agenesis - abdominal circumference at 99th percentile - weight at 97th percentile - Simple ovarian cyst or cystic kidney (contralateral side) Assessment at 36 weeks and 2 days gestation with history of fetus with left renal agenesis. Recent M ultrasound showed abdominal circumference at 99th percentile, estimated weight at 97th percentile, amniotic fluid index of 16, and a new finding of simple ovarian cyst versus cystic kidney of the contralateral side. Patient reports intermittent pressure in the lower abdomen, which is consistent with normal pressure contractions common in multiparous women. heart rate is 126 bpm, which is within normal range. Patient denies leaking fluid, and previous ultrasound showed adequate amniotic fluid levels. No current signs of active labor or labor, despite a recent admission for threatened labor that was ruled out. Plan - Patient to attend MFM ultrasound appointment on Saturday - Follow-up appointment scheduled for next week after MFM ultrasound - Discuss [facility] recommendations regarding early delivery vs. waiting for labor at next appointment - Consider induction at 39 weeks (to be confirmed) - Potential for Dr. Villalpando to perform delivery with Dr. Gardner on standby - Provider to complete additional medical information request 1. Progress Reviewed gestational age, growth, and heart rate. Planned frequent visits (every 2 weeks until 36 weeks, then weekly). 2. Instructed patient to monitor movements and report decreases immediately. 3. Testing Counseled on routine third-trimester labs per guidelines. Discussed potential need for ultrasound or monitoring based on risk factors. 4. Preeclampsia Precaution Educated on preeclampsia signs: severe headache, vision changes, right upper qu adrant pain, sudden swelling. Advised urgent reporting of symptoms and discussed blood pressure monitoring if high risk. 5. Labor Precautions Reviewed labor signs: regular contractions, pelvic pressure, back pain, bleeding, or fluid leakage. Instructed to seek immediate care for these symptoms. 6. Lifestyle and Delivery Preparation Reinforced vitamins, nutrition, and safe activity. Discussed plan, pain management, and . Advised on labor preparation (e.g., hospital bag) and expectations. 7. Psychosocial Support Assessed emotional well-being and offered resources for mental health or parenting support.
== END 2024-12-08 10:17 | disposition home or self-care (01) ==
LOC: HODSOBC 09:50
PROVIDERS: Supervising Provider Obstetrics & Gynecology; Visit Provider Obstetrics & Gynecology
DX: O09.893 Supervision of other high risk pregnancies, third trimester (principal); O09.43 Supervision of pregnancy with grand multiparity, third trimester; O99.013 Anemia complicating pregnancy, third trimester; O35.EXX0 Maternal care for other (suspected) fetal abnormality and damage, fetal genitourinary anomalies, not applicable or unspecified; Z3A.36 36 weeks gestation of pregnancy
CPT/HCPCS: 99214; G0463

== ENCOUNTER 2024-12-21 10:24 | Outpatient (AMB) | payer MEDICAID, SELFPAY ==
[2024-12-21 10:51] VITALS: BP 126/84; PULSE 86; RESP 14; TEMP 36.4; O2SAT 98; BMI 31.7
--- NOTE | 2024-12-21 10:51 | OBCLNT_ITS ---
Vital Signs 12/21/24 10:51 Height 1.57 m Height Method Stated Weight 78.188 kg Weight Measurement Method Standing Scale BMI 31.7 BP 126/84 Blood Pressure Source Automatic Cuff Blood Pressure Location Left Upper Arm Position Sitting Respiration 14 Pulse 86 Pulse Source Monitor Temp 97.6 F Temp Source Oral Pulse Oximetry (%) 98 Oxygen Delivery Method Room Air Allergies/Home Meds Allergies & Medications Allergies No Known Allergies Allergy (Verified 12/21/24 10:52) Medication Reconciliation vitamins with calcium no.72-iron 27 mg-folic acid 1 mg tablet ( Vitamins Plus Low Iron) 1 tab PO QDAY 90 days #90 tabs 08/03/24 [Rx Confirmed 12/21/24] docusate sodium 100 mg capsule (Stool Softener) 100 mg PO QDAY 90 days #90 caps 10/16/24 [Rx Confirmed 12/21/24] ferrous sulfate 325 mg (65 mg iron) tablet 325 mg PO BID 90 days #180 tabs 10/16/24 [Rx Confirmed 12/21/24] Intake Visit Data Collection New Patient or Established: Established Patient (seen at [facility] within 3 years) Reason for Visit:: CARE Seen by Clinical Staff ONLY (RN/MA): No 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 1. Little interest or pleasure in doing things: not at all 2. Feeling down, depressed, or hopeless: not at all Total score: 0 PHQ-9 3. Trouble falling or staying asleep, or sleeping too much: Not at all 4. Feeling tired or having little energy: Not at all 5. Poor appetite or overeating: Not at all 6. Feeling bad about yourself - or that you are a failure or have let yourself or your family down: Not at all 7. Trouble concentrating on things, such as reading the newspaper or watching television: Not at all 8. Moving or speaking so slowly that other people could have noticed? - Or the opposite - being so fidgety or restless that you have been moving around a lot more than usual: not at all 9. Thoughts that you would be better off or of hurting yourself in some way: Not at all Total score: 0 Source: Developed by Drs. Magen Davalos, Magalis Vu, Kevin Gonzalez and colleagues, with an educational farhat from [employer]. 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: Past Medical History Past Medical History: No Hx Neurological Disorders, No Hx Hypothyroidism, No Hx Hyperthyroidism, No Hx Breast Cancer, No Hx Cardiac Disorders, No Hx Hypertension, Yes Hx Blood Disorders (BLOOD TRANSFUSION 2016), Yes Hx Anemia, No Hx Gastrointestinal Disorders, No Hx Renal Disease, No Hx Deep Vein Thrombosis, No Hx Diabetes Mellitus Type 1, No Hx Diabetes Mellitus Type 2 and No Hx Polycystic Ovarian Syndrome Care OB Visit Log OB Flowsheet Initial Weight: Not Recorded Date -?-?-?-?-?-?-?-?-?-?-?-?- EGA Weight BP Alb Glu CTX Pres Fundal ht FHR Mov Dilation Station Effacement Hx Notes Visit Note 07/06/24 -?-?-?-?-?-?-?-?-?-?-?-?- 14w 1d 63.219 kg 108/70 175 29yo @14w1d presents for review of lab results. She reports no specific complaints or concerns during this visit. - Date: 06/19/2024 - Rubella: Non-immune - Hepatitis B: Negative - Hepatitis C: Negative - Blood group: O positive - Antibody screen: Negative - HIV: Negative - Gonorrhea: Negative - Chlamydia: Negative - Hemoglobin: 11.7 g/dL - Platelets: 317 - Urinalysis: Trace ketones, many bact eria - Urine culture: <10,000 CFU/mL - NIPT: Negative, consistent with female gender 08/03/24 -?-?-?-?-?-?-?-?-?-?-?-?- 18w 1d 65.431 kg 108/69 Stefanie Lloyd, 21 y/o , presents for transfer of care at ~35 weeks gestation. LMP is uncertain; BRITTANI 09/23/2024 per prior US. progressing without major complications. Reports Spencer Bradford contractions that resolve with position change. movement reassuring. Prior was a full-term vaginal delivery at 38 weeks. Current ultrasound confirms breech presentation (footling), and fetus is measuring about 1 week ahead. No contractions or other concerns today. Labs notable for mild anemia and asymptomatic bacteriuria. Maternity 21 negative for aneuploidy; fetus is female. Plan: Schedule for 39 weeks Repeat ultrasound on admission to confir m position If spontaneous version occurs, consider vaginal delivery ECV not recommended; discussed risks/elizabeth efits with patient Continue vitamins Reassess mild anemia (Hgb 10.7) at next visit Review urine culture sensitivity for coa gulase-negative staph; determine treatm ent need based on colony count and symptoms Follow up in 2 weeks for continued monit oring and pre-op planning 09/10/24 -?-?-?-?-?-?-?-?-?-?-?-?- 23w 4d 68.096 kg 102/66 absent cephalic 25 155 active at ~20w for routine visit, all prior SVDs. Initial labs reviewed. Plan: Review labs, attend 20w anatomy US as scheduled. Scripts re-sent 10/16/24 -?-?-?-?-?-?-?-?-?-?-?-?- 28w 5d 70.987 kg 110/72 absent cephalic 30 125 No contractions, LOF, VB and reports good FM. Denies CHEUNG, VC, and epigastric pain. 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) - Normal right kidney - Female fetus - Rest of anatomy survey within normal limits - Patient was counseled by [facility] doctor ab out left renal agenesis - Patient reports previous ligament pain with movement and walking - Pain has improved - Denies any issues with her other children - Follow up with [facility] for next ultrasound on November 18, 2024 - Prescribe iron supplement for anemia, to be sent to [facility] - Return for visit in 4 weeks - Subsequent appointments to be schedule d every 2 weeks after next visit - Patient advised to obtain schwarz pport belt from [facility] for ligament pain - Disability form process explained: * Patient to fill out first three page [place] of [place] red form * Submit to BRITTANI office * Provider will complete last three pa ges - Schedule 4-week follow-up appointment at front office specialist 11/10/24 -?-?-?-?-?-?-?-?-?-?-?-?- 32w 2d 73.652 kg 113/73 absent cephalic 32 145 active 32w2d with left renal agenesis, reports episodic cramping and pelvic pressure, no LOF/VB, FM good, FHR 142. Plan: Instruct ed to go to L&D if symptoms recur, monitor for CTX when symptomatic, U/S and bacillus appt next Wed, f/u in 2 weeks, disability form to be completed. 11/24/24 -?-?-?-?-?-?-?-?-?-?-?-?- 34w 2d 73.709 kg 119/73 occasional cephalic 34 148 active at 34 weeks 2 days gestation with unilateral renal agenesis, presenting with episodic cramping and pelvic pressure. [facility] ultrasound today showed fetus measuring 33 weeks 3 days, EFW at 97th percentile, AC at 99th percentile, JIMMY 16, absent left kidney, and new finding of simple ovarian cyst versus cystic kidney. Patient was evaluated on labor and delivery for threatened labor, which was ruled out. renal agenesis is noted as the primary concern, with macrosomia and potential ovarian/renal cyst as secondary findings. Plan - Follow up in 2 weeks - Return to Labor and Delivery if experi encing signs of labor - Continue monitoring for labor symptoms 12/08/24 -?-?-?-?-?-?-?-?-?-?-?-?- 36w 2d 75.41 kg 115/75 occasional cephalic 36 active - History of fetus with left renal agenesis. - Recent [facility] ultrasound findings: - Abdominal circumference at 99th perc entile - Estimated weight at 97th perce ntile - Amniotic fluid index of 16 - New finding of simple ovarian cyst v ersus cystic kidney on the contralateral side - Recent admission to Labor and Delivery for threatened pre-term labor, which has since been ruled out - Current symptoms: - Reports feeling pressure in the [place] om that comes and goes - Denies contractions - Unsure about leaking fluid - movement: Reports baby is active - Patient to attend [facility] ultrasound appointment on Saturday - Follow-up appointment scheduled for ne xt week after MFM ultrasound - Discuss MF recommendations regarding early delivery vs. waiting for labor at next appointment - Consider induction at 39 weeks (to be confirmed) - Potential for Dr. Villalpando to perform deli very with Dr. Gardner on standby - Provider to complete additional medica l information request 12/21/24 -?-?-?-?-?-?-?-?-?-?-?-?- 38w 1d 78.188 kg 126/84 occasional cephalic 39 active - She reports intermittent pressure sensations. - Patient confirms activity is pre sent. - She has previously delivered a 9-pound baby at full term, which was her largest delivery to date. - Recent hospital visit occurred where cervical examination was per formed. - Schedule induction of labor for 39 weeks (December 27 or after) - Call hospital to book induction date - Patient to be contacted with confirmed induction date BRITTANI Calculator Estimated Delivery Date Method Current WG Current Estimate 01/03/25 Ultrasound #1 38w 1d Other Estimates 12/30/24 LMP (Certain) 38w 5d Specific Issue/Plans SatNov 24 2024 - [facility] Ultrasound: - Gestational age: 33 weeks and 3 days - EFW: 97th percentile - AC: 99th percentile - JIMMY: 16 - Absent left kidney - Simple ovarian cyst versus cystic kidney (new finding) Notes Visit Date: 10/16/24 Last Updated by: Rosales Gardner MD Laboratory, Imaging, and Diagnostic Test Results - [facility] Ultrasound (10/07/2024 at 25 weeks 2 days): - Absent left kidney - Right kidney normal in appearance - Female gender - Rest of anatomy survey within normal limits - Labs (10/02/2024): - CBC: Hemoglobin 9.1 g/dL (low, indicating anemia) - CMP: Glucose 130 mg/dL - Hemoglobin A1c: 5.0% - One-hour glucose screenin mg/dL (normal, up to 139 mg/dL) - Uric acid: 2.9 mg/dL - LDH: 143 U/L Office Procedures O[facility] Clinic LOC & Office Proc's Nursing/Assessment Patient Status: Established Patient OB Clinic Nursing Assessment: Medication Reconciliation, Update PMH in EMR and Vital Signs OB Clinic Coordination of Care: Complex Care and Chronic Disease 1-5, Consent,records obtained, informed consent, Education Simp Pt/Fam, Lab and Imaging orders, Results/Orders obtained and Staff clarify orders Special Needs: Heart tones Miscellaneous Interventions: Pelvic no cultures Established Patient Charge Established Patient Point Assignment: 145 Established Patient Point Charge: EP Level 4 (120-155) Assessment & Plan Diagnosis / Problem List (1) Renal agenesis, , affecting care of mother, antepartum: Status: Acute (2) Anemia affecting : Status: Acute (3) Grand multiparity: Status: Acute Plan Problem List - , 38 weeks and 1 day - macrosomia - renal agenesis, unilateral Assessment at 38 weeks and 1 day gestation with macrosomia and left renal agenesis. Latest ultrasound on 12/16/2024 shows estimated weight of 3700 grams (8 pounds, 3 ounces), 93rd percentile, with abdominal circumference >99th percentile. Cervical exam reveals less than 1 cm dilation. heart rate auscultated at 135 bpm, within normal limits. Patient reports active movement. Group B Streptococcus status is negative. Plan - Schedule induction of labor for 39 weeks (December 27 or after) - Call hospital to book induction date - Patient to be contacted with confirmed induction date 1. Progress Reviewed gestational age (38 weeks and 1 day), growth (EFW 3700 grams, 93rd percentile with AC >99th percentile indicating macrosomia), and heart rate (135 bpm, normal). Planned induction of labor at 39 weeks due to macrosomia and renal agenesis. 2. Instructed patient to monitor movements and report decreases immediately. 3. Testing Counseled on routine third-trimester labs per guidelines. Recent ultrasound completed showing macrosomic fetus with renal agenesis requiring MFM consultation. 4. Preeclampsia Precaution Educated on preeclampsia signs: severe headache, vision changes, right upper quadrant pain, sudden swelling. Advised urgent reporting of symptoms and discussed blood pressure monitoring if high risk. 5. Labor Precautions Reviewed labor signs: regular contractions, pelvic pressure, back pain, bleeding, or fluid leakage. Instructed to seek immediate care for these symptoms. 6. Lifestyle and Delivery Preparation Reinforced vitamins, nutrition, and safe activity. Discussed induction plan for December 27 or after due to macrosomia, with cervical exam showing less than 1 cm dilation. 7. Psychosocial Support Assessed emotional well-being and offered resources for mental health or parenting support.
== END 2024-12-21 11:14 | disposition home or self-care (01) ==
LOC: HODSOBC 10:24
PROVIDERS: Supervising Provider Obstetrics & Gynecology; Visit Provider Obstetrics & Gynecology
DX: O09.43 Supervision of pregnancy with grand multiparity, third trimester (principal); O09.893 Supervision of other high risk pregnancies, third trimester; O35.EXX0 Maternal care for other (suspected) fetal abnormality and damage, fetal genitourinary anomalies, not applicable or unspecified; O99.013 Anemia complicating pregnancy, third trimester; Z3A.38 38 weeks gestation of pregnancy
CPT/HCPCS: 99214; G0463

== ENCOUNTER 2024-12-28 08:30 | Inpatient (IN) | payer MEDICAID, SELFPAY ==
[2024-12-28] VITALS (94 sets, daily range): BP systolic 105–132; BP diastolic 62–88; PULSE 62–118; RESP 16–100; TEMP 36.6–36.9; O2SAT 92–100; BMI 31.5; BMI 32.5
[2024-12-28] MEDS: RINGERS LACTATED 1000 ML 1,000 ML 100 ML IV (09:26)
[2024-12-28 10:35] LABS: Basophils # (Auto) 0.0 Thou/mm3 (0.0-0.2); Basophils % (Auto) 1 % (0-2.5); Eosinophils # (Auto) 0.0 Thou/mm3 (0.0-0.5); Eosinophils % (Auto) 0 % (0-10); Hematocrit 32.8 % (36.0-46.0); Hemoglobin 10.0 g/dL (12.0-16.0); Immature Granulocytes Auto 0.06 Thou/mm3 (0.00-0.00); Lymphocytes # (Auto) 0.9 Thou/mm3 (1.0-4.8); Lymphocytes % (Auto) 15 % (10-50); Mean Corpuscular HGB Conc 30.5 g/dl (31.0-37.0); Mean Corpuscular Hemoglobin 21.9 pg (25.0-35.0); Mean Corpuscular Volume 72 fL (80-100); Monocytes # (Auto) 0.4 Thou/mm3 (0.0-0.8); Monocytes % (Auto) 6 % (0-12); Neutrophils # (Auto) 4.8 Thou/mm3 (1.8-7.7); Neutrophils % (Auto) 78 % (37-80); Nucleated Red Blood Cell # 0.02 Thou/mm3 (0.00-0.00); Nucleated Red Blood Cell % 0 /100 WBC (0); Platelet Count 277 Thou/mm3 (140-440); RDW Standard Deviation 46.6 fL (36.4-46.3); Red Blood Count 4.57 Miln/mm3 (4.00-5.20); White Blood Count 6.2 Thou/mm3 (3.6-11.0)
[2024-12-28 11:01] LABS: Syphilis Nonreactive (Nonreactive)
[2024-12-28] MEDS: fentaNYL CIT INJ 50 mCg/ML AMP 2ML 100 MCG IVP ×2 (11:18→13:34)
--- NOTE | 2024-12-28 12:06 | PD.LDHP ---
Documentation for date of: 12/28/24 OB Labor/Induct. HPI History of Present Illness Chief complaint: Early labor : 6 Term pregnancies: 3 pregnancies: 2 Living children: 5 History of Abortions: Spontaneous and Elective: 0 History of sections: No History of : No BRITTANI: 01/03/25 Gestational Age (weeks): 39 Gestational Age (days): 1 History of present illness: 29 y/o at History of Present Dating criteria: LMP confirmed by 1st trimester US Adequate Care: Yes Ultrasounds: normal mid trimester US Obstetrical complications: other (Her baby has unilateral renal agenesis) Medical complications: none Labs Maternal Blood Type: O Pos Labs: Positive: Rubella Titre and Group Beta Strep and Negative: RPR, Hepatitis B, HIV, Chlamydia and Gonorrhea Past Medical History Surgical History SURGICAL: Negative Section Meds Home Medications and Allergies Allergies Allergy/AdvReac Type Severity Reaction Status Date / Time No Known Allergies Allergy Verified 12/28/24 09:35 OB Exam Physical Exam Vital signs: Temp Pulse Resp BP Pulse Ox 98.5 F 83 16 106/74 99 12/28/24 08:57 12/28/24 09:22 12/28/24 08:57 12/28/24 09:22 12/28/24 12:03 Detailed Labor and Delivery Exam Effacement (%): 80 Cervix position: mid station: -1 Consistency: soft Presentation: Vertex Membranes: ruptured Amniotic fluid: thick meconium monitor accelerations: 15x15 monitor decelerations: None FDC variability: Moderate (11-25) Contraction frequency (min): Every 3 minutes Tachysystole: No Contraction intensity: Strong OB Results Labs 12/28/24 09:25 Labs: Short CBC 12/28/24 Range/Units 09: WBC 6.2 (3.6-11.0) Thou/mm3 Hgb 10.0 L (12.0-16.0) g/dL Hct 32.8 L (36.0-46.0) % Plt Count 277 (140-440) Thou/mm3 OB Assessment & Plan Assessment and Plan (1) Renal agenesis, , affecting care of mother, antepartum: Status: Acute (2) Anemia affecting : Status: Acute (3) Grand multiparity: Status: Acute Assessment and plan: All medications at bedside for potential hemorrhage (4) Supervision of high risk , unspecified, first trimester: Status: Acute Additional Plan Induction method: none Plan: anticipate NVD (1) Renal agenesis, , affecting care of mother, antepartum Qualifiers: Fetus number: single or unspecified fetus Qualified Code(s): O35.EXX0 - Maternal care for other (suspected) abnormality and damage, genitourinary anomalies, not applicable or unspecified (2) Anemia affecting Qualifiers: Trimester: third trimester Qualified Code(s): O99.013 - Anemia complicating , third trimester
[2024-12-28] MEDS: OXYTOCIN in NS 20 units 20 UNIT/1,000 ML BAG 125 UNIT IV (14:23)
--- NOTE | 2024-12-28 17:55 | PD.LDDELS ---
Data (Yang) Data Hx Section: No Maternal Blood Type: O Pos Rubella Titre: Positive RPR: Non-reactive Labs: Negative: RPR, Hepatitis B, HIV, Chlamydia, Gonorrhea and Group Beta Strep : 6 Term: 3 : 2 Livin Abortions: Spontaneous & Theraputic: 0 Delivery Data (Yang) Labor Data Initiation of labor: Spontaneous Induction/Augmentation Agent: Artificial ROM ROM date: 12/28/24 ROM time: 12:20 Amniotic membrane rupture type: Artificial Amniotic fluid description: Light Meconium Delivery Data EDC: 01/03/25 EDC calculated by:: LMP/early US confirmation Date of arrival to unit: 12/28/24 Onset of labor date: 12/28/24 Onset of labor time: 04:00 Complete dilation date: 12/28/24 Complete dilation time: 13:55 delivery date: 12/28/24 [place] delivery time: 14:07 Gestational age (weeks): 39 Gestational age (days): 1 Placenta delivery date: 12/28/24 Placenta delivery time: 14:13 Stage 1 total time: Labor - Stage 1 Duration 9 hours and 55 minutes Delivered by: Gaby Hyde (OB Clinic) Delivery nurse: lexi Levy nurse: chelsea alves, lars rn Day Care Assistant at delivery: No Support person(s) at delivery: FOB Delivery Method Delivery method: Normal Vaginal Delivery Presentation: Vertex position: OA Anesthesia Type Anesthesia Type: None Delivery Room Medications Delivery room medications: Pitocin 20 u IV Placenta Placenta delivery description: Spontaneous Cord blood sent to lab: Yes cord blood collection: Cord Blood Type Episiotomy Episiotomy description: None EBL Estimated blood loss (ml): 100 Umbilical Cord cord description: 3 Vessels Additional Procedures The patient is a 29-year-old -2-0-5 with all care uncomplicated Dr. Gardner at the [facility] who presented to triage today 5 cm dilated. The patient had a history of 5 vaginal deliveries without complications in the past, the largest was 9 pounds. This baby has unilateral renal agenesis and has been followed by a maternal- medicine doctor. The patient did not desire epidural. The patient went on to progress to 8 to 9 cm and an amniotomy was performed and light meconium noted. She felt pressure and pushed about 20 minutes but patient could not push the remainder of the cervix away so the patient was placed on her side and given some more fentanyl . After waiting approximately 40 minutes, the patient felt more pressure and she began pushing again and pushed approximately 20 minutes delivering a liveborn female at 1407 on 12/28/2024. Findings: Liveborn female in the [place] presentation with no nuchal cord and light meconium. Apgars were 8 and 9, weight was 8 pounds 14 ounces. Of note, the baby was vigorous at and placed directly on her mother's chest. Delayed cord clamping was performed for approximately 2 minutes. The placenta was complete, spontaneous and grossly normal delivering within 2 to 3 minutes of the baby delivering. Patient delivered over an intact perineum. Complications were none. Condition: Both mom and were in stable condition the delivery room. EBL was 100 cc. Complications Complications: None Data (Yang) [place] Data order: 1 [place]'s gender: Female Identification band number: [id number] weight (gms): 4020 g Weight (pounds): 8 lbs and 13.8 ozs length: 52.07 cm 1 minute: 8 5 minutes: 9
[2024-12-28] MEDS: DOCUSATE SOD 100 MG CAPSULE PO (20:46)
[2024-12-28] MEDS: IBUPROFEN TAB 400 MG TABLET 800 MG PO (21:27)
[2024-12-28 22:49] LABS: Basophils # (Auto) 0.0 Thou/mm3 (0.0-0.2); Basophils % (Auto) 0 % (0-2.5); Eosinophils # (Auto) 0.0 Thou/mm3 (0.0-0.5); Eosinophils % (Auto) 0 % (0-10); Hematocrit 28.7 % (36.0-46.0); Immature Granulocytes Auto 0.06 Thou/mm3 (0.00-0.00); Lymphocytes # (Auto) 0.9 Thou/mm3 (1.0-4.8); Lymphocytes % (Auto) 9 % (10-50); Mean Corpuscular HGB Conc 30.7 g/dl (31.0-37.0); Mean Corpuscular Hemoglobin 22.2 pg (25.0-35.0); Mean Corpuscular Volume 72 fL (80-100); Monocytes # (Auto) 0.6 Thou/mm3 (0.0-0.8); Monocytes % (Auto) 6 % (0-12); Neutrophils # (Auto) 8.4 Thou/mm3 (1.8-7.7); Neutrophils % (Auto) 84 % (37-80); Nucleated Red Blood Cell # 0.00 Thou/mm3 (0.00-0.00); Nucleated Red Blood Cell % 0 /100 WBC (0); Platelet Count 227 Thou/mm3 (140-440); RDW Standard Deviation 47.3 fL (36.4-46.3); Red Blood Count 3.97 Miln/mm3 (4.00-5.20); White Blood Count 10.0 Thou/mm3 (3.6-11.0)
[2024-12-28 22:52] LABS: Hemoglobin 8.8 g/dL (12.0-16.0)
[2024-12-29] MEDS: Hydrocortisone Cr 1% 30 GM TUBE TOP (00:58)
[2024-12-29 03:37] VITALS: BP 114/77; PULSE 67; RESP 20; TEMP 36.6; O2SAT 99
[2024-12-29 08:30] VITALS: BP 118/77; PULSE 73; RESP 17; TEMP 36.8; O2SAT 99
[2024-12-29] MEDS: DOCUSATE SOD 100 MG CAPSULE PO (08:45)
--- NOTE | 2024-12-29 10:45 | PD.LDPPPRG ---
Subjective Subjective Interval history: Delivery type: Patient doing well this morning. No acute complaints. Ambulating, tolerating p.o., and voiding without difficulty. HTN/Pre-E screen negative: No CP, SOB, CHEUNG, visual changes, RUQ pain. : [Yes Lochia: diminishing Bowel: Flatus + / Exam Vital Signs Temp Pulse Resp BP Pulse Ox O2 Del Method 98.3 F 73 17 118/77 99 Room Air 12/29/24 08:30 12/29/24 08:30 12/29/24 08:30 12/29/24 08:30 12/29/24 08:30 12/29/24 08:30 Constitutional Constitutional: no acute distress Routine HEENT Exam Head: Present normocephalic and atraumatic Eye: Present EOMI and PERRL ENT: Present mucous membranes moist Routine Neck Exam Neck: Present supple and trachea midline Routine Respiratory Exam Respiratory: Present chest non-tender, lungs clear, normal breath sounds and no resp distress Routine Cardiovascular Exam Cardiovascular: Present RRR Routine Abdominal Exam Abdominal: Present soft and normoactive bowel sounds Routine Extremities Exam Extremities: Present full ROM Routine Skin Exam Skin: Present intact, dry and warm Routine Neurological Exam Neurological: Present alert, oriented X3 and CN II-XII intact Routine Psychiatric Exam Psychiatric: Present normal affect and normal thought process Objective Labs 12/28/24 22:28 Labs: Laboratory Results - last 24 hr 12/28/24 12/28/24 09:25 22:28 WBC 6.2 10.0 D RBC 4.57 3.97 L Hgb 10.0 L 8.8 L Hct 32.8 L 28.7 L MCV 72 L 72 L MCH 21.9 L 22.2 L MCHC 30.5 L 30.7 L RDW Std Deviation 46.6 H 47.3 H Plt Count 277 227 D Neut % (Auto) 78 84 H Lymph % (Auto) 15 9 L [place] % (Auto) 6 6 Eos % (Auto) 0 0 Baso % (Auto) 1 0 Neut # (Auto) 4.8 8.4 H Lymph # (Auto) 0.9 L 0.9 L [place] # (Auto) 0.4 0.6 Eos # (Auto) 0.0 0.0 Baso # (Auto) 0.0 0.0 Immature Gran # (Auto) 0.06 H 0.06 H Absolute Nucleated RBC 0.02 H 0.00 Immature Gran % 1 H 1 H Nucleated RBC % 0 0 Syphilis Serology Nonreactive Blood Type O Positive Antibody Screen NEGATIVE Assessment & Plan Problem List (1) Renal agenesis, , affecting care of mother, antepartum: Status: Acute (2) Anemia affecting : Status: Acute (3) Grand multiparity: Status: Acute (4) Supervision of high risk , unspecified, first trimester: Status: Acute (5) Vaginal delivery: Status: Acute Assessment and plan: 1. Continue routine /post-op care 2. Labs reviewed, cbc appropriate 3. Remove dressing/[place] 4. Encourage to ambulate, shower 5. Encourage PO intake, breast feeding 6. Anticipate discharge home after she completes 24 hours at 1400 hrs. Time Spent With Patient Time: Total time spent is greater than 50% in coordination of care (as documented) at patient's floor/unit and/or counseling patient:
--- NOTE | 2024-12-29 10:47 | PD.LDDS ---
DS: Providers Provider Date of admission: 12/28/24 09:00 Primary care physician: Physician No Primary/Family Admitting Provider: Gaby Hyde MD (OB Clinic) Attending Provider on Admission: Rosales Gardner MD Consults: 12/28/24 16:32 Referral Routine Comment: Attending Provider on DC: Rosales Gardner MD Discharging Provider: Rosales Gardner MD DS: Diagnosis Discharge Diagnosis (1) Vaginal delivery: Status: Acute (2) Anemia affecting : Status: Acute (3) Renal agenesis, , affecting care of mother, antepartum: Status: Acute (4) Grand multiparity: Status: Acute Problem List Completed Was Problem List Reviewed/Reconciled?: Yes Summary/Hosp Course Brief History: 29 y/o at Peripartum Data Delivery Method: Normal Vaginal Delivery Episiotomy Description: None Time Spent with Patient Time attestation: Total time spent providing and/or coordinating discharge services: Exam Vital Signs Temp Pulse Resp BP Pulse Ox O2 Del Method 98.3 F 73 17 118/77 99 Room Air 12/29/24 08:30 12/29/24 08:30 12/29/24 08:30 12/29/24 08:30 12/29/24 08:30 12/29/24 08:30 Discharge Plan Plan Patient Disposition: HOME (Self Care) Patient condition on transfer: Stable Prescriptions/Referrals Prescriptions/Med Rec: New ibuprofen 400 mg Tablet 800 mg PO Q8H PRN (Reason: See Comments) 10 Days Qty: 40 0RF Continued ferrous sulfate 325 mg (65 mg iron) tablet 325 mg PO BID 90 Days Qty: 180 2RF docusate sodium [Stool Softener] 100 mg capsule 100 mg PO QDAY 90 Days Qty: 90 2RF Vitamin Plus Low Iron 27 mg iron- 1 mg tablet 1 tab PO QDAY 90 Days Qty: 90 4RF Referrals: Rosales Gardner MD [Physician, 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] No Primary/Family,Physician [Primary Care Provider] Patient/Caregiver Discharge Instructions Meds to Beds: Yes Education Materials: After a Vaginal , Breast Care After Print Language: Faroese Stand Alone Forms: Najma Award Info., Patient Portal Info Letter Discharge Order Discharge Orders: Discharge (Routine); Ordered 12/29/24 Ordered By: Rosales Gardner Planned Discharge Date 12/29/24 (2) Anemia affecting Qualifiers: Trimester: third trimester Qualified Code(s): O99.013 - Anemia complicating , third trimester (3) Renal agenesis, , affecting care of mother, antepartum Qualifiers: Fetus number: single or unspecified fetus Qualified Code(s): O35.EXX0 - Maternal care for other (suspected) abnormality and damage, genitourinary anomalies, not applicable or unspecified
[2024-12-29 11:30] VITALS: BP 111/75; PULSE 77; RESP 18; TEMP 36.8; O2SAT 99
== END 2024-12-29 16:48 | disposition home or self-care (01) | DRG 560 ==
LOC: S4SX 09:17 → S4NX 17:06
PROVIDERS: Admitting Provider Obstetrics & Gynecology; Visit Provider Obstetrics & Gynecology
DX: O99.02 Anemia complicating childbirth (principal); Z3A.39 39 weeks gestation of pregnancy; Z37.0 Single live birth; O77.0 Labor and delivery complicated by meconium in amniotic fluid; Q60.0 Renal agenesis, unilateral
CPT/HCPCS: 36415; 59409; 85025; 86780; 86850; 86900; 86901; J2590; J3010; J7120; A9270